=== PATIENT | male | born 1935 | race Caucasian/White ===

== ENCOUNTER 2016-09-25 14:20 | Inpatient (IN) | payer MEDICARE, OTHER ==
[2016-09-25] MEDS ORDERED: ONDANSETRON 4 MG/2 ML VIAL IVP STA (14:28)
[2016-09-25] MEDS ORDERED: SODIUM CHLORIDE 0.9% 1,000 ML IV STA (14:28)
[2016-09-25] MEDS ORDERED: FAMOTIDINE 20 MG/2 ML VIAL IV STA (14:34)
--- NOTE | 2016-09-25 14:34 | ED ---
GI Bleed HPI - General Stated complaint: Nausea,Vomiting Time Seen by Provider: 09/25/16 14:20 Source: patient, EMS, RN notes reviewed, old records reviewed Mode of arrival: EMS - History of Present Illness Initial comments: This is a 81-year-old male with a history of CVA with left hemiparesis who woke up earlier last several weeks is been declining with decrease oral intake not taking medications who was in the process of being fed today when he had what appeared to be coffee-ground emesis. No reports of blood per rectum he had 2 small emesis and route per EMS personnel was were clear with some brown flecks. Patient is nonverbal but can answer yes or no. MD complaint: coffee ground emesis - Related Data Home Medications Medication Instructions Recorded Confirmed Acetaminophen Tab [Tylenol] 650 mg PO Q4H PRN 01/27/14 09/25/16 Cetirizine HCl [Zyrtec] 5 mg PO HS 01/27/14 09/25/16 Fluticasone Propionate [Flonase] 1 spray EA NOSTRIL BID@1100,209901/27/1409/25 Hydrocortisone Cream 1 applic TOPICAL HS 01/28/14 09/25/16 [Hydrocortisone 2.5% Cream] ALPRAZolam [Xanax] 0.25 mg PO HS@2100 09/25/16 09/25/16 Calazime Paste 1 applic TOPICAL BID 09/25/16 09/25/16 Clopidogrel [Plavix] 75 mg PO DAILY@1100 09/25/16 09/25/16 Clotrimazole/Betamethasone Dip 1 applic TOPICAL BID 09/25/16 09/25/16 [Lotrisone Cream] Dimethicone/Zinc Oxide [Inzo Zinc 1 applic TOPICAL DAILY PRN 09/25/16 09/25/16 Oxide Barrier Cream] Dimethicone/Zinc Oxide [Inzo Zinc 1 applic TOPICAL Q12H 09/25/16 09/25/16 Oxide Barrier Cream] Docusate [Colace] 100 mg PO BID PRN 09/25/16 09/25/16 Megestrol Acetate [Megace] 400 mg PO DAILY 09/25/16 09/25/16 Memantine [Namenda] 10 mg PO BID 09/25/16 09/25/16 Menthol-Camphor Lotion [Sarna 1 applic TOPICAL BID PRN 09/25/16 09/25/16 Lotion 0.5%-0.5%] Tamsulosin HCl [Flomax] 0.4 mg PO HS 09/25/16 09/25/16 Tolnaftate [Tinactin Powder] 1 applic TOPICAL Q12H 09/25/16 09/25/16 Triamcinolone 0.1% Cream [Kenalog] 1 applic TOPICAL Q12H 09/25/16 09/25/16 Venelex Ointment 1 applic TOPICAL BID 09/25/16 09/25/16 diphenhydrAMINE HCL [Benadryl] 25 mg PO DAILY PRN 09/25/16 09/25/16 Allergies Allergy/AdvReac Type Severity Reaction Status Date / Time No Known Allergies Allergy Verified 09/25/16 14:39 Review of Systems ROS Statement: Those systems with pertinent positive or pertinent negative responses have been documented in the HPI. ROS Other: All systems not noted in ROS Statement are negative. Past Medical History Past Medical History: CVA/TIA, Hyperlipidemia, Hypertension, Osteoarthritis (OA) Additional Past Medical History / Comment(s): mild congnitive impairment, dysphagia, hemiplegia left, gout, psoriasis. CVA in . right great toe wound. Elevated liver enzymes. Recent C-diff colitis. History of Any Multi-Drug Resistant Organisms: C-DIFF, Other MDRO Date of last positivie culture/infection: 01/21/14 MDRO Source:: stool Additional Past Surgical History / Comment(s): bilateral cataracts removed. Liver biopsy 02/15/14 for elevated liver function. Past Anesthesia/Blood Transfusion Reactions: No Reported Reaction Additional Past Alcohol Use History / Comment(s): Patient was a smoker of 2-3 packs per day for 35 years. Patient also has a history of alcohol abuse and was drinking beer, 12 ounce, 5-8 per day. Patient started drinking when he was in seventh. grade and recently quit in May 2013 when he had a stroke. Patient is currently residing at [facility]. - Past Family History Father Family Medical History: COPD Mother Family Medical History: Cancer General Exam - General Exam Comments Initial Comments: This is a well-developed well-nourished awake lethargic male Limitations: altered mental status, physical limitation Head exam: Present: atraumatic, normocephalic, normal inspection Eye exam: Present: normal appearance, PERRL, EOMI. Absent: scleral icterus, conjunctival injection, periorbital swelling ENT exam: Present: mucous membranes dry Neck exam: Present: normal inspection. Absent: tenderness, meningismus, lymphadenopathy Respiratory exam: Present: decreased breath sounds Cardiovascular Exam: Present: regular rate, normal rhythm, normal heart sounds. Absent: systolic murmur, diastolic murmur, rubs, gallop, clicks GI/Abdominal exam: Present: soft. Absent: tenderness Rectal exam: Present: normal inspection, heme (-) stool, other (Heme-negative brown stool). Absent: mass, tenderness Extremities exam: Present: normal capillary refill, other (Left hemiparesis will bunney boot on the left foot). Absent: normal inspection, full ROM Back exam: Present: normal inspection Neurological exam: Present: alert, oriented X3, motor sensory deficit. Absent: CN II-XII intact Psychiatric exam: Present: normal mood, flat affect Skin exam: Present: warm, dry Course Vital Signs 09/25/16 09/25/16 15:02 16:18 Temperature 97.2 F L 98.1 F Pulse Rate 108 H 97 Respiratory 16 16 Rate Blood Pressure 114/66 113/67 O2 Sat by Pulse 91 L 100 Oximetry Medical Decision Making - Medical Decision Making I did discuss the findings with the patient family and with Dr. Helton the patient will be admitted with ultrasound the abdomen further lab testing consultation by GI. - Lab Data Result diagrams: 09/25/16 14:50 09/25/16 14:50 Lab Results 09/25/16 09/25/16 09/25/16 Range/Units 14:50 14:50 14:50 WBC 10.4 (3.8-10.6) k/uL RBC 5.10 (4.30-5.90) m/uL Hgb 16.6 (13.0-17.5) gm/dL Hct 50.6 (39.0-53.0) % MCV 99.3 (80.0-100.0) fL MCH 32.5 (25.0-35.0) pg MCHC 32.7 (31.0-37.0) g/dL RDW 16.3 H (11.5-15.5) % Plt Count 226 (150-450) k/uL Neutrophils % 82 % Lymphocytes % 11 % Monocytes % 4 % Eosinophils % 1 % Basophils % 0 % Neutrophils # 8.5 H (1.3-7.7) k/uL Lymphocytes # 1.1 (1.0-4.8) k/uL Monocytes # 0.4 (0-1.0) k/uL Eosinophils # 0.1 (0-0.7) k/uL Basophils # 0.0 (0-0.2) k/uL Hypochromasia Slight Anisocytosis Slight Macrocytosis Slight PT (9.0-12.0) sec INR (<1.1) APTT (22.0-30.0) sec Sodium 140 (137-145) mmol/L Potassium 4.3 (3.5-5.1) mmol/L Chloride 103 (98-107) mmol/L Carbon Dioxide 17 L (22-30) mmol/L Anion Gap 20 mmol/L BUN 11 (9-20) mg/dL Creatinine 0.70 (0.66-1.25) mg/dL Est GFR (MDRD) Af Amer >60 (>60 ml/min/1.73 sqM) Est GFR (MDRD) Non-Af >60 (>60 ml/min/1.73 sqM) Glucose 109 H (74-99) mg/dL Calcium 9.3 (8.4-10.2) mg/dL Magnesium 1.9 (1.6-2.3) mg/dL Total Bilirubin 1.6 H (0.2-1.3) mg/dL AST 29 (17-59) U/L ALT 18 L (21-72) U/L Alkaline Phosphatase 191 H (38-126) U/L Total Creatine Kinase 21 L (55-170) U/L CK-MB (CK-2) 0.7 (0.0-2.4) ng/mL CK-MB (CK-2) Rel Index 3.3 Troponin I <0.012 (0.000-0.034) ng/mL Total Protein 6.9 (6.3-8.2) g/dL Albumin 3.7 (3.5-5.0) g/dL Stool Occult Blood (Negative) 09/25/16 09/25/16 Range/Units 14:50 15:38 WBC (3.8-10.6) k/uL RBC (4.30-5.90) m/uL Hgb (13.0-17.5) gm/dL Hct (39.0-53.0) % MCV (80.0-100.0) fL MCH (25.0-35.0) pg MCHC (31.0-37.0) g/dL RDW (11.5-15.5) % Plt Count (150-450) k/uL Neutrophils % % Lymphocytes % % Monocytes % % Eosinophils % % Basophils % % Neutrophils # (1.3-7.7) k/uL Lymphocytes # (1.0-4.8) k/uL Monocytes # (0-1.0) k/uL Eosinophils # (0-0.7) k/uL Basophils # (0-0.2) k/uL Hypochromasia Anisocytosis Macrocytosis PT 14.5 H (9.0-12.0) sec INR 1.5 (<1.1) APTT 22.7 (22.0-30.0) sec Sodium (137-145) mmol/L Potassium (3.5-5.1) mmol/L Chloride (98-107) mmol/L Carbon Dioxide (22-30) mmol/L Anion Gap mmol/L BUN (9-20) mg/dL Creatinine (0.66-1.25) mg/dL Est GFR (MDRD) Af Amer (>60 ml/min/1.73 sqM) Est GFR (MDRD) Non-Af (>60 ml/min/1.73 sqM) Glucose (74-99) mg/dL Calcium (8.4-10.2) mg/dL Magnesium (1.6-2.3) mg/dL Total Bilirubin (0.2-1.3) mg/dL AST (17-59) U/L ALT (21-72) U/L Alkaline Phosphatase (38-126) U/L Total Creatine Kinase (55-170) U/L CK-MB (CK-2) (0.0-2.4) ng/mL CK-MB (CK-2) Rel Index Troponin I (0.000-0.034) ng/mL Total Protein (6.3-8.2) g/dL Albumin (3.5-5.0) g/dL Stool Occult Blood Negative (Negative) - EKG Data -: EKG Interpreted by Me (Sinus tachycardia rate 114 VA 136 QRS duration 74 daily since QTC of 3:30/4) - Radiology Data Radiology results: report reviewed (I did review the imaging and reports no acute findings are significant for suicide.), image reviewed Disposition Clinical Impression: Vomiting, Dehydration, Failure to thrive Disposition: ADMITTED IP TO THIS [facility] Condition: Stable Referrals: Clyde Doran MD [Primary Care Provider] - 1-2 days
[2016-09-25 15:19] LABS: Anisocytosis Slight; Basophils % (A) 0 %; CH 30.7; CHCM 31.1; Eosinophils # (A) 0.1 k/uL (0-0.7); Eosinophils % (A) 1 %; HCT 50.6 % (39.0-53.0); HDW 2.47; HGB 16.6 gm/dL (13.0-17.5); Hypochromasia Slight; Luc # (Auto) 0.17; Luc % (Auto) 2; Lymphocytes # (A) 1.1 k/uL (1.0-4.8); Lymphocytes % (A) 11 %; MCH 32.5 pg (25.0-35.0); MCHC 32.7 g/dL (31.0-37.0); MCV 99.3 fL (80.0-100.0); Macrocytosis Slight; Mean Platelet Volume 7.9; Monocytes # (A) 0.4 k/uL (0-1.0); Monocytes % (A) 4 %; Neutrophils # (A) 8.5 k/uL (1.3-7.7); Neutrophils % (A) 82 %; RDW 16.3 % (11.5-15.5); WBC 10.4 k/uL (3.8-10.6); WBC (Perox) 10.39
[2016-09-25 15:27] LABS: ALT 18 U/L (21-72); AST 29 U/L (17-59); Alkaline Phosphatase 191 U/L (38-126); Anion Gap 20 mmol/L; Blood Urea Nitrogen 11 mg/dL (9-20); Calcium 9.3 mg/dL (8.4-10.2); Carbon Dioxide 17 mmol/L (22-30); Chloride 103 mmol/L (98-107); Glucose 109 mg/dL (74-99); Magnesium 1.9 mg/dL (1.6-2.3); Non-African American GFR(MDRD) >60 (>60 ml/min/1.73 sqM); Potassium 4.3 mmol/L (3.5-5.1); Sodium 140 mmol/L (137-145); Total Bilirubin 1.6 mg/dL (0.2-1.3); Total Protein 6.9 g/dL (6.3-8.2)
[2016-09-25 15:39] LABS: Creatine Kinase 21 U/L (55-170)
[2016-09-25 15:52] LABS: Creatine Kinase MB 0.7 ng/mL (0.0-2.4); Troponin I <0.012 ng/mL (0.000-0.034)
--- NOTE | 2016-09-25 15:59 | XR ---
EXAMINATION TYPE: XR abdomen acute w cxr DATE OF EXAM ORDERED: 09/25/2016 HISTORY: Pain. COMPARISON: None. FINDINGS: There is apparent elevation right hemidiaphragm. The heart is not enlarged. There is minim al atelectasis at the right lung base. Within the abdomen, the abdominal gas pattern is nonspecific with nondistended air-filled loops of la rge and small bowel throughout the abdomen. There are phleboliths within the pelvis. There is a moder ate amount of stool within the rectum. IMPRESSION: NO ACUTE THORACIC OR ABDOMINAL ABNORMALITY.
[2016-09-25 16:04] LABS: INR 1.5 (<1.1); Partial Thromboplastin Time 22.7 sec (22.0-30.0); Prothrombin Time 14.5 sec (9.0-12.0)
[2016-09-25] MEDS ORDERED: NALOXONE 0.4 MG/ML 1 ML VIAL IV PRN (16:41)
[2016-09-25] MEDS ORDERED: ONDANSETRON 4 MG/2 ML VIAL IVP PRN (16:41)
--- NOTE | 2016-09-25 18:28 | US ---
EXAMINATION TYPE: US abdomen complete DATE OF EXAM: 09/25/2016 COMPARISON: Prior US in PACS CLINICAL HISTORY: Pain. Extremely limited/difficult exam due to large amount of overlying bowel gas. Patient was non-cooperative. Could not take a deep breath in and hold it and would not roll onto his side. RN Adrienne in exam room for entire exam EXAM MEASUREMENTS: Liver Length: Unable to measure with certainty Gallbladder Wall: 0.2 cm CBD: Unable to visualize with certainty Spleen:Unable to visualize with certainty Right Kidney: 9.7 x 5.6 x 5.0 cm Left Kidney: 9.6 x 5.9 x 5.1 cm Pancreas: Unable to visualize with certainty Liver: Extremely limited exam due to large amount of overlying bowel gas and patient non-cooperation Gallbladder: No stones visualized on limited evaluation Evidence for sonographic Hernández's sign: Patient in pain during entire exam CBD: Unable to visualize with certainty Spleen: Unable to visualize with certainty Right Kidney: No hydronephrosis or masses seen Left Kidney: No hydronephrosis or masses seen Upper IVC: Unable to visualize with certainty Abd Aorta: Unable to visualize with certainty Non-diagnostic exam IMPRESSION: Limited study. No distinct abnormality seen at this time.
[2016-09-25 18:48] LABS: Amylase 46 U/L (30-110)
[2016-09-25] MEDS: PANTOPRAZOLE 40 MG/10 ML VIAL IV SCH (20:25)
[2016-09-26] MEDS: 0.9% NACL WITH KCL 20 MEQ/L 1,000 ML IV SCH ×4 (00:20→21:26)
[2016-09-26 05:36] LABS: Appearance,Urine Clear (Clear); Bacteria,Urine Rare /hpf; Bilirubin,Urine 1+ (Negative); Glucose,Urine (UA) Negative (Negative); Ketones,Urine 2+ (Negative); Leukocyte Esterase,Urine Trace (Negative); Mucus,Urine Rare /hpf; Nitrite,Urine Negative (Negative); Particle Count 3056; Protein,Urine 1+ (Negative); RBC,Urine 1 /hpf (0-5); Specific Gravity,Urine 1.027 (1.001-1.035); Squamous Epithelial Cell,Urine 1 /hpf (0-4); UA Billing (MACRO vs. MICRO) MICRO; WBC,Urine 5 /hpf (0-5)
[2016-09-26 07:48] LABS: Anisocytosis Slight; Basophils % (A) 0 %; CHCM 31.6; Eosinophils # (A) 0.2 k/uL (0-0.7); Eosinophils % (A) 2 %; HCT 46.9 % (39.0-53.0); HDW 2.45; HGB 14.9 gm/dL (13.0-17.5); Luc # (Auto) 0.24; Luc % (Auto) 2; Lymphocytes # (A) 0.9 k/uL (1.0-4.8); Lymphocytes % (A) 8 %; MCH 31.5 pg (25.0-35.0); MCHC 31.8 g/dL (31.0-37.0); Macrocytosis Slight; Mean Platelet Volume 8.3; Monocytes # (A) 0.6 k/uL (0-1.0); Monocytes % (A) 5 %; Neutrophils # (A) 9.8 k/uL (1.3-7.7); Neutrophils % (A) 83 %; RBC 4.74 m/uL (4.30-5.90); RDW 16.2 % (11.5-15.5); WBC 11.8 k/uL (3.8-10.6)
[2016-09-26 08:08] LABS: Anion Gap 13 mmol/L; Blood Urea Nitrogen 9 mg/dL (9-20); Carbon Dioxide 18 mmol/L (22-30); Chloride 112 mmol/L (98-107); Glucose 87 mg/dL (74-99); Potassium 4.1 mmol/L (3.5-5.1); Sodium 143 mmol/L (137-145)
[2016-09-26 08:09] LABS: ALT 18 U/L (21-72); AST 20 U/L (17-59); Alkaline Phosphatase 151 U/L (38-126); Calcium 8.5 mg/dL (8.4-10.2); Non-African American GFR(MDRD) >60 (>60 ml/min/1.73 sqM); Total Bilirubin 1.4 mg/dL (0.2-1.3); Total Protein 5.8 g/dL (6.3-8.2)
[2016-09-26] MEDS: PANTOPRAZOLE 40 MG/10 ML VIAL IV SCH ×2 (08:13→21:27)
[2016-09-26 08:30] VITALS: BMI 18.3
--- NOTE | 2016-09-26 08:41 | P.CONS ---
History of Present Illness - Reason for Consult Consult date: 09/26/16 Vomiting elevated bilirubin Requesting physician: Sarah Helton - History of Present Illness 81-year-old male essentially nonverbal can answer yes or no with a history of CVA left hemiparesis, C. diff, dysphagia, anxiety, depression, and elevated liver function tests admitted with decreased oral intake and reported coffee- ground emesis. Consultation requested for elevated bilirubin and vomiting Medical records reviewed nursing staff interviewed for additional history secondary to patient's inability to provide details. No reports of fever, gross hematochezia or melena since admission. Home medications include Plavix. Admission hemoglobin 16.6. Platelet 226. INR 1.5. BUN 11. Creatinine 0.7. Total bilirubin 1.6. AST 29. ALT 18. Alkaline phosphatase 191. Ultrasound incomplete secondary to patient being noncooperative. Acute abdominal series no abdominal abnormality identified. Patient has a history of elevated liver function tests that dates back to 2013. Full serologic workup for chronic liver disease has been performed in the past. Upon review of medical records over the last few years total bilirubin ranges 0.4-1.6. AST 29-187. ALT 18-to 85. Alkaline phosphatase 191-1105. INR 1.0-1.5. JAKE less than 80. Anti-mitochondrial antibody 2. GGT 794. Iron 80. Iron saturation 37.9%. Ferritin 1640. MRCP 2013 reported no evidence of obstruction or focal stenosis. Exam limited secondary to patient's inability to hold breath for the exam. Liver spleen pancreas gallbladder appeared grossly normal. No intra-hepatic ductal dilatation evident. Review of Systems Medical records reviewed for ROS. Constitutional: Denies fever, chills, sweats, weight gain, or loss. Nonverbal except yes or no responses. HEENT: Negative for migraines, blurred vision or loss, earaches, drainage, tinnitus, oral mucosal lesions, dysphagia, or odynophagia. Cardiac: Hyperlipidemia. Hypertension. Negative for chest pain, arrhythmias, or palpitation. Respiratory: Negative for shortness of breath, hemoptysis, cough, or sputum production. Gastrointestinal: See HPI for pertinent findings. Genitourinary: Negative for hematuria, urgency, frequency, polyuria, dysuria, or penile discharge. Musculoskeletal: Negative for muscle aches, swelling, arthritis, and arthralgias. Neurologic: CVA with left hemiparesis. Endocrine: Negative for thyroid problems. Skin: Negative for rash or itching. Psychiatric: History of depression and anxiety ROS unobtainable: due to mental status Past Medical History Past Medical History: CVA/TIA, Hyperlipidemia, Hypertension, Osteoarthritis (OA) Additional Past Medical History / Comment(s): mild congnitive impairment, dysphagia, hemiplegia left, gout, psoriasis. CVA in . right great toe wound. Elevated liver enzymes. Recent C-diff colitis. History of Any Multi-Drug Resistant Organisms: C-DIFF, Other MDRO Year Discovered:: 01/21/14 MDRO Source:: stool Additional Past Surgical History / Comment(s): bilateral cataracts removed. Liver biopsy 02/15/14 for elevated liver function. Past Anesthesia/Blood Transfusion Reactions: No Reported Reaction Past Psychological History: Anxiety, Depression Smoking Status: Former smoker - Past Family History Father Family Medical History: COPD Mother Family Medical History: Cancer Medications and Allergies Home Medications Medication Instructions Recorded Confirmed Type Acetaminophen Tab [Tylenol] 650 mg PO Q4H PRN 01/27/14 09/25/16 History Cetirizine HCl [Zyrtec] 5 mg PO HS 01/27/14 09/25/16 History Fluticasone Propionate [Flonase] 1 spray EA NOSTRIL BID@1100,2100 01/27/1409/25 History Hydrocortisone Cream 1 applic TOPICAL HS 01/28/14 09/25/16 History [Hydrocortisone 2.5% Cream] ALPRAZolam [Xanax] 0.25 mg PO HS@2100 09/25/16 09/25/16 History Calazime Paste 1 applic TOPICAL BID 09/25/16 09/25/16 History Clopidogrel [Plavix] 75 mg PO DAILY@1100 09/25/16 09/25/16 History Clotrimazole/Betamethasone Dip 1 applic TOPICAL BID 09/25/16 09/25/16 History [Lotrisone Cream] Dimethicone/Zinc Oxide [Inzo Zinc 1 applic TOPICAL DAILY PRN 09/25/16 09/25/16 History Oxide Barrier Cream] Dimethicone/Zinc Oxide [Inzo Zinc 1 applic TOPICAL Q12H 09/25/16 09/25/16 History Oxide Barrier Cream] Docusate [Colace] 100 mg PO BID PRN 09/25/16 09/25/16 History Megestrol Acetate [Megace] 400 mg PO DAILY 09/25/16 09/25/16 History Memantine [Namenda] 10 mg PO BID 09/25/16 09/25/16 History Menthol-Camphor Lotion [Sarna 1 applic TOPICAL BID PRN 09/25/16 09/25/16 History Lotion 0.5%-0.5%] Tamsulosin HCl [Flomax] 0.4 mg PO HS 09/25/16 09/25/16 History Tolnaftate [Tinactin Powder] 1 applic TOPICAL Q12H 09/25/16 09/25/16 History Triamcinolone 0.1% Cream [Kenalog] 1 applic TOPICAL Q12H 09/25/16 09/25/16 History Venelex Ointment 1 applic TOPICAL BID 09/25/16 09/25/16 History diphenhydrAMINE HCL [Benadryl] 25 mg PO DAILY PRN 09/25/16 09/25/16 History Allergies Allergy/AdvReac Type Severity Reaction Status Date / Time No Known Allergies Allergy Verified 09/25/16 14:39 Physical Exam Vitals: Vital Signs Temp Pulse Pulse Resp BP BP BP 09/26/16 07:00 97.5 F L 86 16 121/82 09/25/16 23:00 97.0 F L 91 20 108/68 09/25/16 19:34 98.3 F 97 20 97/63 09/25/16 18:26 97.6 F 112 H 16 116/64 09/25/16 16:18 98.1 F 97 16 113/67 09/25/16 15:02 97.2 F L 108 H 16 114/66 Pulse Ox 09/26/16 07:00 96 09/25/16 23:00 94 L 09/25/16 19:34 95 09/25/16 18:26 94 L 09/25/16 16:18 100 09/25/16 15:02 91 L Intake and Output 09/25/16 09/26/16 09/26/16 22:59 06:59 14:59 Intake Total 0 1150 Output Total 1101 Balance 0 49 Intake: IV 1150 0.9% NaCl with KCl 20 Meq 650 /l 1,000 ml @ 125 mls/hr IV .Q8H [facility] Rx#:[id number] Sodium Chloride 0.9% 1, 500 000 ml @ 100 mls/hr IV . Q10H [facility] Rx#:[id number] Oral 0 Output: Urine 1100 Straight 550 Stool 1 Other: # Voids 0 0 # Bowel Movements 1 Weight 54.885 kg General appearance: The patient is alert, oriented, in no acute distress. Answers yes or no. HET: Head is normocephalic and atraumatic. Pupils are equal and reactive. Oropharynx is clear without lesions. Neck: Supple without lymphadenopathy. Trachea midline. Heart: S1 S2. Regular rate and rhythm. Lungs: No crackles or wheezes are heard. Abdomen: Soft, nontender, nondistended with bowel sounds. No peritoneal signs. No palpable organomegaly or masses. Extremities: Normal skin color and turgor. No cyanosis, rash, ulceration, clubbing, or edema. Radial and pedal pulses are 2/4 bilaterally. Neurological: Left hemiparesis. Results CBC & Chem 7: 09/26/16 07:09 09/26/16 07:09 Labs: Abnormal Lab Results - Last 24 Hours (Table) 09/25/16 09/25/16 09/25/16 Range/Units 14:50 14:50 14:50 RDW 16.3 H (11.5-15.5) % Neutrophils # 8.5 H (1.3-7.7) k/uL PT (9.0-12.0) sec Carbon Dioxide 17 L (22-30) mmol/L Glucose 109 H (74-99) mg/dL Total Bilirubin 1.6 H (0.2-1.3) mg/dL ALT 18 L (21-72) U/L Alkaline Phosphatase 191 H (38-126) U/L Total Creatine Kinase 21 L (55-170) U/L Urine Protein (Negative) Urine Ketones (Negative) Urine Bilirubin (Negative) Ur Leukocyte Esterase (Negative) Urine Bacteria (None) /hpf Hyaline Casts (0-2) /lpf Urine Mucus (None) /hpf 09/25/16 09/26/16 Range/Units 14:50 05:10 RDW (11.5-15.5) % Neutrophils # (1.3-7.7) k/uL PT 14.5 H (9.0-12.0) sec Carbon Dioxide (22-30) mmol/L Glucose (74-99) mg/dL Total Bilirubin (0.2-1.3) mg/dL ALT (21-72) U/L Alkaline Phosphatase (38-126) U/L Total Creatine Kinase (55-170) U/L Urine Protein 1+ H (Negative) Urine Ketones 2+ H (Negative) Urine Bilirubin 1+ H (Negative) Ur Leukocyte Esterase Trace H (Negative) Urine Bacteria Rare H (None) /hpf Hyaline Casts 3 H (0-2) /lpf Urine Mucus Rare H (None) /hpf Assessment and Plan (1) Elevated liver enzymes Narrative/Plan: 81-year-old gentleman with a history of elevated liver function tests possible underlying chronic liver disease presents with mild hyperbilirubinemia and reported episode of coffee-ground emesis and mild coagulopathy INR 1.5. Acute coffee-ground emesis secondary to possible peptic ulcer disease possible esophageal varices possible bleeding angiectasia exacerbated by antiplatelet medication. Patient has a history of stroke with left hemiparesis requiring Plavix therapy. Status: Chronic (2) Coffee ground emesis Status: Acute (3) Upper GI bleed Status: Acute (4) CVA, old, hemiparesis Status: Chronic Plan: 1. Recommend EGD evaluation for reported coffee ground emesis. 2. Protonix 40 mg IV daily. 3. CBC monitoring. 4. Bilirubin fractions. The trouble lineman has discussed the risks, benefits and alternative therapies for the above-mentioned procedure and for both sedation/analgesia as well as necessary blood product administration, if indicated, as they pertain to this patient. The patient's advocate has indicated understanding and acceptance of the risks and procedures discussed. Thank you for this kind referral and the opportunity to participate in the care of your patient. This consultation was discussed with Dr. Crowe. The impression and plan of care have been directed as dictated.
[2016-09-26 11:38] LABS: Bilirubin, Delta 0.9 mg/dL (0.0-0.2); Total Bilirubin 1.4 mg/dL (0.2-1.3)
[2016-09-26] MEDS ORDERED: PROPOFOL 10 MG/ML 20 ML VIAL IV ONE (13:08)
[2016-09-26] MEDS ORDERED: LIDOCAINE 1% INJ 10MG/ML (20 ML MDV) ONE (13:08)
[2016-09-26] MEDS ORDERED: IV FLUID CONTINUATION 1,000 ML IV ONE (13:12)
--- NOTE | 2016-09-26 13:23 | P.PCN ---
Date of Procedure: 09/26/16 Preoperative Diagnosis: Postoperative Diagnosis: Procedure(s) Performed: BRIEF HISTORY: Patient is a 81-year-old, pleasant, white male, admitted hospital with an episode of acute upper GI bleed. Apparently he had an episode of coffee-ground emesis. He has history of previous CVA in the past/dementia and a very poor historian. PROCEDURE PERFORMED: Esophagogastroduodenoscopy. PREOPERATIVE DIAGNOSIS: Coffee-ground emesis. IV sedation per anesthesia. PROCEDURE: After informed consent was obtained, the patient was brought into the endoscopy unit. IV sedation was administered by Anesthesia under continuous monitoring. Initially the Olympus GIF-140 video endoscope was inserted into the mouth. Esophagus intubated without any difficulty. It was gradually advanced into the stomach and duodenum and carefully examined. The bulb and the second part of the duodenum appeared normal. The scope at this time was withdrawn to the stomach, adequately insufflated with air, and upon careful examination, mucosa of the antrum had mild gastritis. The body, cardia and the fundus appeared normal. The scope was then withdrawn into the esophagus. The GE junction was located at 39 cm from the incisors. The esophagus appeared normal. There was circumferential erythema the GE junction consistent with LA grade a reflux esophagitis but no erosions or ulcerations seen and the patient tolerated the procedure well. IMPRESSION: 1. Mild antral gastritis. 2. Mild reflux esophagitis. RECOMMENDATIONS: The findings of this examination were discussed with the patient as well as his family. He will be continued on proton pump inhibitors and will advance diet as tolerated. Implants: Indications for Procedure: Operative Findings: Description of Procedure:
--- NOTE | 2016-09-26 17:24 | P.HPIM ---
History of Present Illness H&P Date: 09/26/16 Chief Complaint: Vomiting with possible upper GI bleeding Sudeep Cabrera is a 81 year old male resident of a [place] [facility] who started having episodes of vomiting, nurse [place] the [place] [facility] thought that she saw a coffee ground material vomiting, he was sent to [facility] emergency room for evaluation, he was evaluated in the emergency room and admitted to medical floor due to episodes of vomiting. He was started on IV proton next gastroenterology consultation was requested Past Medical History Past Medical History: CVA/TIA, Hyperlipidemia, Hypertension, Osteoarthritis (OA) Additional Past Medical History / Comment(s): mild congnitive impairment, dysphagia, hemiplegia left, gout, psoriasis. CVA in . right great toe wound. Elevated liver enzymes. Recent C-diff colitis. History of Any Multi-Drug Resistant Organisms: C-DIFF, Other MDRO Date of last positivie culture/infection: 01/21/14 MDRO Source:: stool Additional Past Surgical History / Comment(s): bilateral cataracts removed. Liver biopsy 02/15/14 for elevated liver function. Past Anesthesia/Blood Transfusion Reactions: No Reported Reaction Past Psychological History: Anxiety, Depression Smoking Status: Former smoker - Past Family History Father Family Medical History: COPD Mother Family Medical History: Cancer Medications and Allergies Home Medications Medication Instructions Recorded Confirmed Type Acetaminophen Tab [Tylenol] 650 mg PO Q4H PRN 01/27/14 09/25/16 History Cetirizine HCl [Zyrtec] 5 mg PO HS 01/27/14 09/25/16 History Fluticasone Propionate [Flonase] 1 spray EA NOSTRIL BID@1100,209901/27/1409/25 History Hydrocortisone Cream 1 applic TOPICAL HS 01/28/14 09/25/16 History [Hydrocortisone 2.5% Cream] ALPRAZolam [Xanax] 0.25 mg PO HS@2100 09/25/16 09/25/16 History Calazime Paste 1 applic TOPICAL BID 09/25/16 09/25/16 History Clopidogrel [Plavix] 75 mg PO DAILY@1100 09/25/16 09/25/16 History Clotrimazole/Betamethasone Dip 1 applic TOPICAL BID 09/25/16 09/25/16 History [Lotrisone Cream] Dimethicone/Zinc Oxide [Inzo Zinc 1 applic TOPICAL DAILY PRN 09/25/16 09/25/16 History Oxide Barrier Cream] Dimethicone/Zinc Oxide [Inzo Zinc 1 applic TOPICAL Q12H 09/25/16 09/25/16 History Oxide Barrier Cream] Docusate [Colace] 100 mg PO BID PRN 09/25/16 09/25/16 History Megestrol Acetate [Megace] 400 mg PO DAILY 09/25/16 09/25/16 History Memantine [Namenda] 10 mg PO BID 09/25/16 09/25/16 History Menthol-Camphor Lotion [Sarna 1 applic TOPICAL BID PRN 09/25/16 09/25/16 History Lotion 0.5%-0.5%] Tamsulosin HCl [Flomax] 0.4 mg PO HS 09/25/16 09/25/16 History Tolnaftate [Tinactin Powder] 1 applic TOPICAL Q12H 09/25/16 09/25/16 History Triamcinolone 0.1% Cream [Kenalog] 1 applic TOPICAL Q12H 09/25/16 09/25/16 History Venelex Ointment 1 applic TOPICAL BID 09/25/16 09/25/16 History diphenhydrAMINE HCL [Benadryl] 25 mg PO DAILY PRN 09/25/16 09/25/16 History Allergies Allergy/AdvReac Type Severity Reaction Status Date / Time No Known Allergies Allergy Verified 09/25/16 14:39 Physical Exam Vitals: Vital Signs Temp Pulse Pulse Resp BP BP BP 09/26/16 16:32 90 16 09/26/16 15:00 96.4 F L 90 16 108/67 09/26/16 08:23 97.5 F L 86 16 121/82 09/26/16 07:00 97.5 F L 86 16 121/82 09/25/16 23:00 97.0 F L 91 20 108/68 09/25/16 19:34 98.3 F 97 20 97/63 09/25/16 18:26 97.6 F 112 H 16 116/64 Pulse Ox 09/26/16 16:32 09/26/16 15:00 96 09/26/16 08:23 96 09/26/16 07:00 96 09/25/16 23:00 94 L 09/25/16 19:34 95 09/25/16 18:26 94 L Intake and Output 09/26/16 09/26/16 09/26/16 06:59 14:59 22:59 Intake Total 1150 1000 Output Total 1101 1 Balance 49 1000 -1 Intake: IV 1150 1000 0.9% NaCl with KCl 20 Meq 650 1000 /l 1,000 ml @ 125 mls/hr IV .Q8H [facility] Rx#:[id number] Sodium Chloride 0.9% 1, 500 000 ml @ 100 mls/hr IV . Q10H STA Rx#:[id number] Output: Urine 1100 Straight 550 Stool 1 1 Other: # Voids 0 0 # Bowel Movements 1 1 Weight 54.885 kg Patient Weight 09/27/16 06:59 Weight 54.885 kg In general patient is alert and oriented 3 in no apparent distress HEENT head normocephalic and atraumatic Neck is supple no JVD no goiter no lymphadenopathy Chest exam reveals a few scattered crackles in both lung paredes no wheezing Cardiac exam reveals regular heart sounds S1 and S2 no gallops no murmurs Abdomen is soft nontender no organomegaly Extremity exam reveals minimal edema no cyanosis or clubbing Results CBC & Chem 7: 09/26/16 07:09 09/26/16 07:09 Labs: Abnormal Lab Results - Last 24 Hours (Table) 09/26/16 09/26/16 09/26/16 Range/Units 05:10 07:09 07:09 WBC 11.8 H (3.8-10.6) k/uL RDW 16.2 H (11.5-15.5) % Neutrophils # 9.8 H (1.3-7.7) k/uL Lymphocytes # 0.9 L (1.0-4.8) k/uL Chloride 112 H (98-107) mmol/L Carbon Dioxide 18 L (22-30) mmol/L Creatinine 0.55 L (0.66-1.25) mg/dL Total Bilirubin 1.4 H (0.2-1.3) mg/dL Delta Bilirubin (0.0-0.2) mg/dL ALT 18 L (21-72) U/L Alkaline Phosphatase 151 H (38-126) U/L Total Protein 5.8 L (6.3-8.2) g/dL Albumin 2.9 L (3.5-5.0) g/dL Urine Protein 1+ H (Negative) Urine Ketones 2+ H (Negative) Urine Bilirubin 1+ H (Negative) Ur Leukocyte Esterase Trace H (Negative) Urine Bacteria Rare H (None) /hpf Hyaline Casts 3 H (0-2) /lpf Urine Mucus Rare H (None) /hpf 09/26/16 Range/Units 07:09 WBC (3.8-10.6) k/uL RDW (11.5-15.5) % Neutrophils # (1.3-7.7) k/uL Lymphocytes # (1.0-4.8) k/uL Chloride (98-107) mmol/L Carbon Dioxide (22-30) mmol/L Creatinine (0.66-1.25) mg/dL Total Bilirubin 1.4 H (0.2-1.3) mg/dL Delta Bilirubin 0.9 H (0.0-0.2) mg/dL ALT (21-72) U/L Alkaline Phosphatase (38-126) U/L Total Protein (6.3-8.2) g/dL Albumin (3.5-5.0) g/dL Urine Protein (Negative) Urine Ketones (Negative) Urine Bilirubin (Negative) Ur Leukocyte Esterase (Negative) Urine Bacteria (None) /hpf Hyaline Casts (0-2) /lpf Urine Mucus (None) /hpf Microbiology - Last 24 Hours (Table) 09/26/16 05:10 Urine Culture - Preliminary Urine,Catheterized Thrombosis Risk Factor Assmnt - Choose All That Apply Any of the Below Risk Factors Present?: Yes Each Factor Represents 1 point: Medical pt on bed rest Other Risk Factors: Yes Each Risk Factor Represents 2 Points: Patient confined to bed Each Risk Factor Represents 3 Points: Age 75 years or older Other congenital or acquired thrombophilia - If yes, enter type in comment: No Thrombosis Risk Factor Assessment Total Risk Factor Score: 6 Thrombosis Risk Factor Assessment Level: High Risk Assessment and Plan Plan: #1 gastroenteritis with vomiting #2 possible upper gastrointestinal bleeding with [place] material at the [place] [facility] #3 underlying history of stroke in 2014 #4 previous history of Clostridium difficile colitis #5 elevated liver enzymes and elevated bilirubin #6 underlying history of BPH #7 underlying history of mild cognitive impairment At this time patient is admitted to medical floor he is maintained on IV fluids and IV Protonix Gastroenterology consultation for possible EGD was initiated will follow
[2016-09-26] MEDS ORDERED: MENTHOL-CAMPHOR LOTION 222 APPLIC/222 ML BOTTLE TOPICAL PRN (17:43)
[2016-09-26] MEDS ORDERED: ZINC OXIDE 20% OINT 28.4 GM TUBE TOPICAL PRN (17:43)
[2016-09-26] MEDS ORDERED: ACETAMINOPHEN TAB 325 MG TAB PO PRN (17:43)
[2016-09-26] MEDS ORDERED: diphenhydrAMINE 25 MG CAP PO PRN (17:43)
[2016-09-26] MEDS ORDERED: DOCUSATE 100 MG CAP PO PRN (17:43)
[2016-09-26] MEDS ORDERED: CALAZIME PASTE TOPICAL SCH (21:00)
[2016-09-26] MEDS ORDERED: TAMSULOSIN 0.4 MG CAP.ER.24H PO SCH (21:00)
[2016-09-26] MEDS ORDERED: ALPRAZolam 0.25 MG TAB PO SCH (21:00)
[2016-09-26] MEDS ORDERED: LORATADINE 10 MG TAB PO SCH (21:00)
[2016-09-26] MEDS ORDERED: HYDROCORTISONE TOPICAL SCH (21:00)
[2016-09-26] MEDS: FLUTICASONE 50MCG/SPRAY NASAL 16GM EA NOSTRIL SCH (21:25)
[2016-09-26] MEDS: MINERAL OIL-WHITE PETROLATUM 120 GM JAR TOPICAL SCH (21:26)
[2016-09-26] MEDS: NYSTATIN 100,000 UNIT/GM POWD 15 GM TOPICAL SCH (21:26)
[2016-09-26] MEDS: ZINC OXIDE 20% OINT 28.4 GM TUBE TOPICAL SCH (21:26)
[2016-09-26] MEDS: MEMANTINE 10 MG TAB PO SCH (21:27)
[2016-09-26] MEDS: CLOTRIMAZOLE/BETAMETH 1-0.05% CREAM 45 GM TUBE TOPICAL SCH (21:28)
[2016-09-26] MEDS: TRIAMCINOLONE 0.1% CREAM 80 GM TUBE TOPICAL SCH (21:28)
[2016-09-27] MEDS ORDERED: MEGESTROL 400 MG/10 ML CUP PO SCH (09:00)
[2016-09-27] MEDS: 0.9% NACL WITH KCL 20 MEQ/L 1,000 ML IV SCH ×2 (09:55→16:28)
[2016-09-27] MEDS: MINERAL OIL-WHITE PETROLATUM 120 GM JAR TOPICAL SCH (09:56)
[2016-09-27] MEDS: CLOTRIMAZOLE/BETAMETH 1-0.05% CREAM 45 GM TUBE TOPICAL SCH (09:56)
[2016-09-27] MEDS: MEMANTINE 10 MG TAB PO SCH (09:56)
[2016-09-27] MEDS: PANTOPRAZOLE 40 MG/10 ML VIAL IV SCH (09:57)
[2016-09-27] MEDS: TRIAMCINOLONE 0.1% CREAM 80 GM TUBE TOPICAL SCH (09:57)
[2016-09-27] MEDS: ZINC OXIDE 20% OINT 28.4 GM TUBE TOPICAL SCH (09:57)
[2016-09-27] MEDS: NYSTATIN 100,000 UNIT/GM POWD 15 GM TOPICAL SCH (09:57)
[2016-09-27] MEDS: FLUTICASONE 50MCG/SPRAY NASAL 16GM EA NOSTRIL SCH (09:58)
[2016-09-27] MEDS ORDERED: CLOPIDOGREL 75 MG TAB PO SCH (11:00)
--- NOTE | 2016-09-27 11:12 | P.PN ---
Subjective Principal diagnosis: Elevated bilirubin coffee-ground emesis Status post EGD yesterday for evaluation of reported coffee-ground emesis findings of gastritis no evidence of complicated peptic reflux or varices. History of elevated liver enzymes in the past. No recurrence of coffee-ground emesis. Tolerating diet. Total bilirubin 1.4. Unconjugated 0.5. Conjugated 0. Objective - Vital Signs Vital signs: Vital Signs Temp 97.9 F 09/27/16 07:00 Pulse 72 09/27/16 07:00 Resp 16 09/27/16 07:00 BP 110/60 09/27/16 07:00 Pulse Ox 99 09/27/16 07:00 Intake & Output 09/26/16 09/27/16 09/27/16 18:59 06:59 18:59 Intake Total 1000 60 Output Total 21 346 Balance 979 60 -346 Weight 54.885 kg Intake: IV 1000 0.9% NaCl with KCl 20 Meq 1000 /l 1,000 ml @ 125 mls/hr IV .Q8H [facility] Rx#:[id number] Oral 60 Output: Post Void Residual 20 346 Stool 1 Other: Voiding Method Incontinent # Voids 0 0 3 # Bowel Movements 1 2 - Exam General appearance: The patient is alert, oriented, in no acute distress. Answers yes or no. HET: Head is normocephalic and atraumatic. Pupils are equal and reactive. Oropharynx is clear without lesions. Neck: Supple without lymphadenopathy. Trachea midline. Heart: S1 S2. Regular rate and rhythm. Lungs: No crackles or wheezes are heard. Abdomen: Soft, nontender, nondistended with bowel sounds. No peritoneal signs. No palpable organomegaly or masses. Extremities: Normal skin color and turgor. No cyanosis, rash, ulceration, clubbing, or edema. Radial and pedal pulses are 2/4 bilaterally. Neurological: Left hemiparesis - Labs CBC & Chem 7: 09/26/16 07:09 09/26/16 07:09 Labs: Abnormal Lab Results - Last 24 Hours (Table) 09/26/16 Range/Units 07:09 Total Bilirubin 1.4 H (0.2-1.3) mg/dL Delta Bilirubin 0.9 H (0.0-0.2) mg/dL Microbiology - Last 24 Hours (Table) 09/26/16 05:10 Urine Culture - Preliminary Urine,Catheterized Assessment and Plan (1) Elevated liver enzymes Narrative/Plan: 81-year-old gentleman with a history of elevated liver function tests possible underlying chronic liver disease presents with mild hyperbilirubinemia and reported episode of coffee-ground emesis and mild coagulopathy INR 1.5. Acute coffee-ground emesis unclear status post EGD with findings of gastritis no evidence of esophageal varices or complicated reflux disease. Patient has a history of stroke with left hemiparesis requiring Plavix therapy. Status: Chronic (2) Coffee ground emesis Narrative/Plan: Status post EGD gastritis Status: Acute (3) Upper GI bleed Status: Acute (4) CVA, old, hemiparesis Status: Chronic Plan: 1. Agreeable for discharge. Continue GI prophylaxis with [facility]. No further workup at this time. Assessment and plan a care discussed with Dr. Crowe.
--- NOTE | 2016-09-27 14:16 | P.DS ---
Providers Date of admission: 09/25/16 16:41 Expected date of discharge: 09/27/16 Attending physician: Sarah Helton Consults: Dr. Fran Crowe Primary care physician: Clyde Doran [facility] Hospital Course: Discharge diagnosis 1. Acute GI bleed with coffee ground emesis status post EGD revealing mild antral gastritis and mild reflux esophagitis. Hemoglobin stable at 14.9. Continue Protonix 40 mg by mouth daily 2. Elevated liver enzymes with possible underlying chronic liver disease. Evaluated by GI service EGD had showed no evidence of esophageal varices or complicated reflux disease. 3. History of CVA patient can continue Plavix 4. History of BPH 5. History of dementia 6. Urinary retention: Patient required Garcia catheter to be inserted. Flomax was increased to twice a day. Recommend continuing Garcia catheter for one week and then to check postvoid residuals every 8 hours for 24 hour. 7. UTI: Will discharge patient on amoxicillin 500 mg 3 times a day for 7 days. Urine culture had grown only 10,000 colonies of presumptive staph aureus Hospital course Sudeep Cabrera is a 81 [facility] who started having episodes of vomiting, nurse [facility] the [facility] thought that she saw a coffee ground material vomiting, he was sent to [facility] emergency room for evaluation, he was evaluated in the emergency room and admitted to medical floor due to episodes of vomiting. He was started on IV proton next gastroenterology consultation was requested. Patient seen by GI service. Underwent EGD revealing mild antral gastritis and mild reflux esophagitis. We will continue Protonix 40 mg daily. Hemoglobin at discharge is 14.9. Recommend checking a CBC in 1 week. He's had no further episodes of vomiting. Patient did have a mild UTI and was given 1 dose of Rocephin will continue amoxicillin for 7 more days. GI service also felt that patient's elevated liver enzymes which are showing improvement were is related to her chronic liver disease. Patient has had some workup completed outpatient per GI service. Patient's symptoms have improved she is medically stable for discharge also he had evidence of urinary retention Flomax as been increased and he'll be discharged with the Garcia catheter for one week. Recommend checking CBC and CMP in 1 week. Please refer to chart for any further details. Patient will be discharged to [facility]. Dr. Doran will follow at [facility] Patient Condition at Discharge: Stable Plan - Discharge Summary New Discharge Prescriptions: New Pantoprazole Sodium [Protonix] 40 mg PO DAILY #30 tablet.dr Continue Acetaminophen Tab [Tylenol] 650 mg PO Q4H PRN PRN Reason: Pain Or Fever > 100.5 Fluticasone Propionate [Flonase] 1 spray EA NOSTRIL BID@1100,2100 Cetirizine HCl [Zyrtec] 5 mg PO HS Hydrocortisone Cream [Hydrocortisone 2.5% Cream] 1 applic TOPICAL HS Triamcinolone 0.1% Cream [Kenalog] 1 applic TOPICAL Q12H Clotrimazole/Betamethasone Dip [Lotrisone Cream] 1 applic TOPICAL BID Dimethicone/Zinc Oxide [Inzo Zinc Oxide Barrier Cream] 1 applic TOPICAL Q12H Tolnaftate [Tinactin Powder] 1 applic TOPICAL Q12H diphenhydrAMINE HCL [Benadryl] 25 mg PO DAILY PRN PRN Reason: Itching Docusate [Colace] 100 mg PO BID PRN PRN Reason: Constipation Memantine [Namenda] 10 mg PO BID Megestrol Acetate [Megace] 400 mg PO DAILY Clopidogrel [Plavix] 75 mg PO DAILY@1100 Calazime Paste 1 applic TOPICAL BID Venelex Ointment 1 applic TOPICAL BID Menthol-Camphor Lotion [Sarna Lotion 0.5%-0.5%] 1 applic TOPICAL BID PRN PRN Reason: Itching Dimethicone/Zinc Oxide [Inzo Zinc Oxide Barrier Cream] 1 applic TOPICAL DAILY PRN PRN Reason: Itching ALPRAZolam [Xanax] 0.25 mg PO HS@2100 #30 Changed Tamsulosin HCl [Flomax] 0.4 mg PO BID #60 Discharge Medication List Acetaminophen Tab [Tylenol] 650 mg PO Q4H PRN 01/27/14 [History] Cetirizine HCl [Zyrtec] 5 mg PO HS 01/27/14 [History] Fluticasone Propionate [Flonase] 1 spray EA NOSTRIL BID@1100,2100 01/27/14 [ History] Hydrocortisone Cream [Hydrocortisone 2.5% Cream] 1 applic TOPICAL HS 01/28/14 [ History] Calazime Paste 1 applic TOPICAL BID 09/25/16 [History] Clopidogrel [Plavix] 75 mg PO DAILY@1100 09/25/16 [History] Clotrimazole/Betamethasone Dip [Lotrisone Cream] 1 applic TOPICAL BID 09/25/16 [ History] Dimethicone/Zinc Oxide [Inzo Zinc Oxide Barrier Cream] 1 applic TOPICAL DAILY PRN 09/25/16 [History] Dimethicone/Zinc Oxide [Inzo Zinc Oxide Barrier Cream] 1 applic TOPICAL Q12H [History] Docusate [Colace] 100 mg PO BID PRN 09/25/16 [History] Megestrol Acetate [Megace] 400 mg PO DAILY 09/25/16 [History] Memantine [Namenda] 10 mg PO BID 09/25/16 [History] Menthol-Camphor Lotion [Sarna Lotion 0.5%-0.5%] 1 applic TOPICAL BID PRN [History] Tolnaftate [Tinactin Powder] 1 applic TOPICAL Q12H 09/25/16 [History] Triamcinolone 0.1% Cream [Kenalog] 1 applic TOPICAL Q12H 09/25/16 [History] Venelex Ointment 1 applic TOPICAL BID 09/25/16 [History] diphenhydrAMINE HCL [Benadryl] 25 mg PO DAILY PRN 09/25/16 [History] ALPRAZolam [Xanax] 0.25 mg PO HS@2100 #30 09/27/16 [Rx] Pantoprazole Sodium [Protonix] 40 mg PO DAILY #30 tablet. 09/27/16 [Rx] Tamsulosin HCl [Flomax] 0.4 mg PO BID #60 09/27/16 [Rx] Follow up Appointment(s)/Referral(s): [facility], [NON-STAFF] - 1 Week Cldye Doran MD [Primary Care Provider] - 1 Week Patient Instructions/Handouts: Dehydration (DC) Activity/Diet/Wound Care/Special Instructions: Change positions every 2 hours while awake. Regular diet. Patient will be discharged back to [facility]. Dr. Doran to follow at [facility] Discharge Disposition: TRANSFER TO SNF/ECF
[2016-09-27 16:19] VITALS: BP 112/67; PULSE 94; RESP 20
[2016-09-27 17:21] VITALS: TEMP 99.4
== END 2016-09-27 17:52 | DRG 392 ==
LOC: EC 14:20 → 4MS4W 16:41
PROVIDERS: ADMIT Internal Medicine; ATTEND Internal Medicine
PROC: 0DJ08ZZ Inspection of Upper Intestinal Tract, Via Natural or Artificial Opening Endoscopic (ICD-10-PCS; principal; 2016-09-26 07:30)
DX: K29.60 Other gastritis without bleeding (principal); I69.354 Hemiplegia and hemiparesis following cerebral infarction affecting left non-dominant side; N39.0 Urinary tract infection, site not specified; K92.2 Gastrointestinal hemorrhage, unspecified; E86.0 Dehydration; F03.90 Unspecified dementia, unspecified severity, without behavioral disturbance, psychotic disturbance, mood disturbance, and anxiety; R13.10 Dysphagia, unspecified; E78.5 Hyperlipidemia, unspecified; F32.9 Major depressive disorder, single episode, unspecified; F41.9 Anxiety disorder, unspecified; I10 Essential (primary) hypertension; K21.0 Gastro-esophageal reflux disease with esophagitis; K76.9 Liver disease, unspecified; M10.9 Gout, unspecified; N40.0 Benign prostatic hyperplasia without lower urinary tract symptoms; L40.9 Psoriasis, unspecified; M19.90 Unspecified osteoarthritis, unspecified site; R32 Unspecified urinary incontinence; R62.7 Adult failure to thrive; Z79.02 Long term (current) use of antithrombotics/antiplatelets; Z79.899 Other long term (current) drug therapy; Z87.891 Personal history of nicotine dependence
CPT/HCPCS: 36415; 43235; 74022; 76700; 80053; 81001; 82150; 82248; 82272; 82550; 82553; 83690; 83735; 84484; 85025; 85610; 85730; 87077; 87086; 87186; 93005; 96361; 96374; 96375; 99285

== ENCOUNTER 2016-10-07 10:52 | Inpatient (IN) | payer MEDICARE, OTHER ==
[2016-10-07] MEDS ORDERED: ONDANSETRON 4 MG/2 ML VIAL IVP STA (11:02)
[2016-10-07] MEDS ORDERED: SODIUM CHLORIDE 0.9% 2,000 ML IV STA (11:02)
--- NOTE | 2016-10-07 11:08 | ED ---
Nausea/Vomiting/Diarrhea HPI - General Chief complaint: Nausea/Vomiting/Diarrhea Stated complaint: Dehydration Time Seen by Provider: 10/07/16 10:52 Source: patient, EMS, RN notes reviewed, old records reviewed Mode of arrival: EMS - History of Present Illness Initial comments: This is a 81-year-old male with history of multiple medical problems including CVA was brought in by EMS from a local long term. Her also nausea vomiting since yesterday. He was given a liter fluid at home without any improvement. He did refuse to have IVs or medication by EMS. Patient states he has some abdominal pain is ruled out since yesterday he has had decreased oral intake. He does have also cognitive impairment so this history is not totally reliable. MD complaint: nausea, vomiting, other - Related Data Home Medications Medication Instructions Recorded Confirmed Acetaminophen Tab [Tylenol] 650 mg PO Q4H PRN 01/27/14 10/07/16 Cetirizine HCl [Zyrtec] 5 mg PO HS@209901/27/14 10/07/16 Fluticasone Propionate [Flonase] 1 spray EA NOSTRIL BID@899,209901/27/1410/07 Hydrocortisone Cream 1 applic TOPICAL HS@209901/28/14 10/07/16 [Hydrocortisone 2.5% Cream] Clopidogrel [Plavix] 75 mg PO DAILY@89909/25/16 10/07/16 Docusate [Colace] 100 mg PO BID@899,209909/25/16 10/07/16 Megestrol Acetate [Megace] 400 mg PO DAILY@89909/25/16 10/07/16 Memantine [Namenda] 10 mg PO BID@899,209909/25/16 10/07/16 Tolnaftate [Tinactin Powder] 1 applic TOPICAL HS@2099 PRN 09/25/16 10/07/16 Venelex Ointment 1 applic TOPICAL BID@899,209909/25/16 10/07/16 diphenhydrAMINE HCL [Benadryl] 25 mg PO Q12H PRN 09/25/16 10/07/16 ALPRAZolam [Niravam] 0.25 mg PO HS@209910/07/16 10/07/16 Citalopram Hydrobromide [CeleXA] 20 mg PO DAILY@899 10/07/16 10/07/16 Clotrimazole/Betamethasone Dip 1 applic TOPICAL BID@0900,209910/07/16 10/07/16 [Lotrisone Cream] Melatonin 3 mg PO HS PRN 10/07/16 10/07/16 Menthol-Camphor Lotion 16-4% 1 applic TOPICAL Q12H PRN 10/07/16 10/07/16 Mirtazapine [Remeron] 15 mg PO HS@209910/07/16 10/07/16 Sodium Chloride 0.9% Iv Angelica 75 ml IV ONCE 10/07/16 10/07/16 Sucralfate [Carafate] 1 gm PO QID@,,,10/07/16 10/07/16 Tamsulosin HCl [Flomax] 0.4 mg PO BID@0900,2100 10/07/16 10/07/16 Tigan Solution 200 mg IM ONCE PRN 10/07/16 10/07/16 Previous Rx's Medication Instructions Recorded Pantoprazole Sodium [Protonix] 40 mg PO DAILY #30 tablet. 09/27/16 Allergies Allergy/AdvReac Type Severity Reaction Status Date / Time No Known Allergies Allergy Verified 10/07/16 11:32 Review of Systems ROS Statement: Those systems with pertinent positive or pertinent negative responses have been documented in the HPI. ROS Other: All systems not noted in ROS Statement are negative. Past Medical History Past Medical History: CVA/TIA, Hyperlipidemia, Hypertension, Osteoarthritis (OA) Additional Past Medical History / Comment(s): mild congnitive impairment, dysphagia, hemiplegia left, gout, psoriasis. CVA in . right great toe wound. Elevated liver enzymes. Recent C-diff colitis. History of Any Multi-Drug Resistant Organisms: C-DIFF, Other MDRO Date of last positivie culture/infection: 01/21/14 MDRO Source:: stool Additional Past Surgical History / Comment(s): bilateral cataracts removed. Liver biopsy 02/15/14 for elevated liver function. Past Anesthesia/Blood Transfusion Reactions: No Reported Reaction Past Psychological History: Anxiety, Depression Smoking Status: Former smoker - Past Family History Father Family Medical History: COPD Mother Family Medical History: Cancer General Exam - General Exam Comments Initial Comments: This is a well-developed well-nourished alert but somewhat lethargic male General appearance: alert, lethargic Head exam: Present: atraumatic, normocephalic, normal inspection Eye exam: Present: normal appearance, PERRL, EOMI. Absent: scleral icterus, conjunctival injection, periorbital swelling ENT exam: Present: mucous membranes dry Neck exam: Present: normal inspection. Absent: tenderness, meningismus, lymphadenopathy Respiratory exam: Present: normal lung sounds bilaterally. Absent: respiratory distress, wheezes, rales, rhonchi, stridor Cardiovascular Exam: Present: regular rate, normal rhythm, normal heart sounds. Absent: systolic murmur, diastolic murmur, rubs, gallop, clicks GI/Abdominal exam: Present: soft, distended, tenderness (Mild generalized discomfort no focal tenderness), normal bowel sounds, other (Increased tympany) . Absent: guarding, rebound, rigid, mass exam: Present: normal inspection Extremities exam: Present: normal inspection, full ROM, normal capillary refill. Absent: tenderness, pedal edema, joint swelling, calf tenderness Back exam: Present: normal inspection Neurological exam: Present: alert, oriented X3, CN II-XII intact Psychiatric exam: Present: normal affect, normal mood Skin exam: Present: warm, dry, intact, normal color. Absent: rash Course Vital Signs 10/07/16 10/07/16 10/07/16 10:54 11:43 12:57 Temperature 101 F H 99.4 F Pulse Rate 99 93 103 H Respiratory 20 18 16 Rate Blood Pressure 165/75 121/71 138/77 O2 Sat by Pulse 97 98 95 Oximetry - Reevaluation(s) Reevaluation #1: 10/07/16 14:37 Reevaluation patient reveals minimal change. I did discuss findings the patient 's family. Medical Decision Making - Medical Decision Making Patient does have evidence of dehydration urinary tract infection she'll be admitted he was placed on IV antibiotics and fluids his left against was elevated this is partially on the basis of dehydration. - Lab Data Result diagrams: 10/07/16 11:30 10/07/16 11:30 Lab Results 10/07/16 10/07/16 10/07/16 Range/Units 11:30 11:30 11:30 WBC 10.7 H (3.8-10.6) k/uL RBC 4.71 (4.30-5.90) m/uL Hgb 14.8 (13.0-17.5) gm/dL Hct 45.2 (39.0-53.0) % MCV 95.8 (80.0-100.0) fL MCH 31.4 (25.0-35.0) pg MCHC 32.7 (31.0-37.0) g/dL RDW 16.7 H (11.5-15.5) % Plt Count 170 (150-450) k/uL Neutrophils % 89 % Lymphocytes % 6 % Monocytes % 4 % Eosinophils % 0 % Basophils % 0 % Neutrophils # 9.5 H (1.3-7.7) k/uL Lymphocytes # 0.7 L (1.0-4.8) k/uL Monocytes # 0.4 (0-1.0) k/uL Eosinophils # 0.0 (0-0.7) k/uL Basophils # 0.0 (0-0.2) k/uL Anisocytosis Slight Macrocytosis Slight Sodium 143 (137-145) mmol/L Potassium 4.4 (3.5-5.1) mmol/L Chloride 107 (98-107) mmol/L Carbon Dioxide 20 L (22-30) mmol/L Anion Gap 16 mmol/L BUN 8 L (9-20) mg/dL Creatinine 0.66 (0.66-1.25) mg/dL Est GFR (MDRD) Af Amer >60 (>60 ml/min/1.73 sqM) Est GFR (MDRD) Non-Af >60 (>60 ml/min/1.73 sqM) Glucose 94 (74-99) mg/dL Plasma Lactic Acid Zeeshan 3.6 H* (0.7-2.0) mmol/L Calcium 9.0 (8.4-10.2) mg/dL Magnesium 1.8 (1.6-2.3) mg/dL Total Bilirubin 1.1 (0.2-1.3) mg/dL AST 22 (17-59) U/L ALT 15 L (21-72) U/L Alkaline Phosphatase 149 H (38-126) U/L Total Protein 6.7 (6.3-8.2) g/dL Albumin 3.4 L (3.5-5.0) g/dL Amylase <30 L (30-110) U/L Lipase 84 (23-300) U/L Urine Color Urine Appearance (Clear) Urine pH (5.0-8.0) Ur Specific [place] (1.001-1.035) Urine Protein (Negative) Urine Glucose (UA) (Negative) Urine Ketones (Negative) Urine Blood (Negative) Urine Nitrite (Negative) Urine Bilirubin (Negative) Urine Urobilinogen (<2.0) mg/dL Ur Leukocyte Esterase (Negative) Urine RBC (0-5) /hpf Urine WBC (0-5) /hpf Urine WBC Clumps (None) /hpf Urine Bacteria (None) /hpf Urine Mucus (None) /hpf Urine Yeast (Budding) (None) /hpf 10/07/16 Range/Units 13:50 WBC (3.8-10.6) k/uL RBC (4.30-5.90) m/uL Hgb (13.0-17.5) gm/dL Hct (39.0-53.0) % MCV (80.0-100.0) fL MCH (25.0-35.0) pg MCHC (31.0-37.0) g/dL RDW (11.5-15.5) % Plt Count (150-450) k/uL Neutrophils % % Lymphocytes % % Monocytes % % Eosinophils % % Basophils % % Neutrophils # (1.3-7.7) k/uL Lymphocytes # (1.0-4.8) k/uL Monocytes # (0-1.0) k/uL Eosinophils # (0-0.7) k/uL Basophils # (0-0.2) k/uL Anisocytosis Macrocytosis Sodium (137-145) mmol/L Potassium (3.5-5.1) mmol/L Chloride (98-107) mmol/L Carbon Dioxide (22-30) mmol/L Anion Gap mmol/L BUN (9-20) mg/dL Creatinine (0.66-1.25) mg/dL Est GFR (MDRD) Af Amer (>60 ml/min/1.73 sqM) Est GFR (MDRD) Non-Af (>60 ml/min/1.73 sqM) Glucose (74-99) mg/dL Plasma Lactic Acid Zeeshan (0.7-2.0) mmol/L Calcium (8.4-10.2) mg/dL Magnesium (1.6-2.3) mg/dL Total Bilirubin (0.2-1.3) mg/dL AST (17-59) U/L ALT (21-72) U/L Alkaline Phosphatase (38-126) U/L Total Protein (6.3-8.2) g/dL Albumin (3.5-5.0) g/dL Amylase (30-110) U/L Lipase (23-300) U/L Urine Color Yellow Urine Appearance Cloudy (Clear) Urine pH 6.0 (5.0-8.0) Ur Specific [place] 1.013 (1.001-1.035) Urine Protein Trace H (Negative) Urine Glucose (UA) Negative (Negative) Urine Ketones 2+ H (Negative) Urine Blood Moderate H (Negative) Urine Nitrite Negative (Negative) Urine Bilirubin Negative (Negative) Urine Urobilinogen 3.0 (<2.0) mg/dL Ur Leukocyte Esterase Large H (Negative) Urine RBC 11 H (0-5) /hpf Urine WBC >182 H (0-5) /hpf Urine WBC Clumps Moderate H (None) /hpf Urine Bacteria Many H (None) /hpf Urine Mucus Many H (None) /hpf Urine Yeast (Budding) Occasional H (None) /hpf - Radiology Data Radiology results: report reviewed (I did review the imaging and reports no acute findings are seen at this time.), image reviewed Disposition Clinical Impression: Urinary tract infection, Sepsis, Dehydration, Febrile illness, acute, Failure to thrive, Vomiting Disposition: ADMITTED IP TO THIS [facility] Condition: Stable Referrals: Clyde Doran MD [Primary Care Provider] - 1-2 days
[2016-10-07 11:53] LABS: ALT 15 U/L (21-72); AST 22 U/L (17-59); Alkaline Phosphatase 149 U/L (38-126); Amylase <30 U/L (30-110); Anion Gap 16 mmol/L; Blood Urea Nitrogen 8 mg/dL (9-20); Carbon Dioxide 20 mmol/L (22-30); Chloride 107 mmol/L (98-107); Glucose 94 mg/dL (74-99); Magnesium 1.8 mg/dL (1.6-2.3); Non-African American GFR(MDRD) >60 (>60 ml/min/1.73 sqM); Potassium 4.4 mmol/L (3.5-5.1); Sodium 143 mmol/L (137-145); Total Bilirubin 1.1 mg/dL (0.2-1.3); Total Protein 6.7 g/dL (6.3-8.2)
[2016-10-07 11:54] LABS: Anisocytosis Slight; Basophils % (A) 0 %; CHCM 32.6; Eosinophils % (A) 0 %; HCT 45.2 % (39.0-53.0); HDW 2.53; HGB 14.8 gm/dL (13.0-17.5); Luc # (Auto) 0.08; Luc % (Auto) 1; Lymphocytes # (A) 0.7 k/uL (1.0-4.8); Lymphocytes % (A) 6 %; MCH 31.4 pg (25.0-35.0); MCHC 32.7 g/dL (31.0-37.0); MCV 95.8 fL (80.0-100.0); Macrocytosis Slight; Mean Platelet Volume 8.4; Monocytes # (A) 0.4 k/uL (0-1.0); Monocytes % (A) 4 %; Neutrophils # (A) 9.5 k/uL (1.3-7.7); Neutrophils % (A) 89 %; RBC 4.71 m/uL (4.30-5.90); RDW 16.7 % (11.5-15.5); WBC 10.7 k/uL (3.8-10.6); WBC (Perox) 10.42
[2016-10-07] MEDS ORDERED: SODIUM CHLORIDE 0.9% 1,000 ML IV STA (12:26)
--- NOTE | 2016-10-07 12:43 | XR ---
EXAMINATION TYPE: XR chest 2V DATE OF EXAM: 10/07/2016 COMPARISON: 06/01/2013 HISTORY: Abdominal pain TECHNIQUE: Frontal and lateral views of the chest are obtained. FINDINGS: There is a relative poor inspiration. There is mild elevation of the right diaphragm. Ther e is no heart failure. Thoracic aorta is atheromatous. I see no pleural effusion. Bony thorax is inta ct. IMPRESSION: There is mild chronic elevation of right diaphragm. No acute lung disease. No adverse ch annamaria compared to old exam. Normal heart
--- NOTE | 2016-10-07 12:44 | XR ---
EXAMINATION TYPE: XR KUB DATE OF EXAM: 10/07/2016 COMPARISON: 01/27/2014 HISTORY: Abdominal pain TECHNIQUE: 2 views FINDINGS: There is no sign of intestinal obstruction or pneumoperitoneum. There is some retained feca l material in the left colon. There is interposition of the hepatic flexure of the colon which is a n ormal variant. There are no pathologic calcifications over the kidneys. IMPRESSION: Nonacute abdomen. There has been removal of gastrostomy tube compared to old exam. Mild c onstipation.
[2016-10-07 14:14] LABS: Appearance,Urine Cloudy (Clear); Bacteria,Urine Many /hpf; Bilirubin,Urine Negative (Negative); Glucose,Urine (UA) Negative (Negative); Ketones,Urine 2+ (Negative); Leukocyte Esterase,Urine Large (Negative); Mucus,Urine Many /hpf; Nitrite,Urine Negative (Negative); Particle Count 84169; Protein,Urine Trace (Negative); RBC,Urine 11 /hpf (0-5); Specific Gravity,Urine 1.013 (1.001-1.035); UA Billing (MACRO vs. MICRO) MICRO; WBC,Urine >182 /hpf (0-5)
[2016-10-07] MEDS ORDERED: SODIUM CHLORIDE 0.45% 1,000 ML IV SCH (14:45)
[2016-10-07] MEDS ORDERED: MELATONIN 3 MG TABLET PO PRN (14:50)
[2016-10-07] MEDS ORDERED: ACETAMINOPHEN TAB 325 MG TAB PO PRN (14:50)
[2016-10-07] MEDS ORDERED: diphenhydrAMINE 25 MG CAP PO PRN (14:50)
[2016-10-07] MEDS ORDERED: NYSTATIN 100,000 UNIT/GM POWD 15 GM TOPICAL PRN (14:50)
--- NOTE | 2016-10-07 14:54 | ED ---
Medical Decision Making - Lab Data Result diagrams: 10/07/16 11:30 10/07/16 11:30 Lab Results 10/07/16 10/07/16 10/07/16 Range/Units 11:30 11:30 11:30 WBC 10.7 H (3.8-10.6) k/uL RBC 4.71 (4.30-5.90) m/uL Hgb 14.8 (13.0-17.5) gm/dL Hct 45.2 (39.0-53.0) % MCV 95.8 (80.0-100.0) fL MCH 31.4 (25.0-35.0) pg MCHC 32.7 (31.0-37.0) g/dL RDW 16.7 H (11.5-15.5) % Plt Count 170 (150-450) k/uL Neutrophils % 89 % Lymphocytes % 6 % Monocytes % 4 % Eosinophils % 0 % Basophils % 0 % Neutrophils # 9.5 H (1.3-7.7) k/uL Lymphocytes # 0.7 L (1.0-4.8) k/uL Monocytes # 0.4 (0-1.0) k/uL Eosinophils # 0.0 (0-0.7) k/uL Basophils # 0.0 (0-0.2) k/uL Anisocytosis Slight Macrocytosis Slight Sodium 143 (137-145) mmol/L Potassium 4.4 (3.5-5.1) mmol/L Chloride 107 (98-107) mmol/L Carbon Dioxide 20 L (22-30) mmol/L Anion Gap 16 mmol/L BUN 8 L (9-20) mg/dL Creatinine 0.66 (0.66-1.25) mg/dL Est GFR (MDRD) Af Amer >60 (>60 ml/min/1.73 sqM) Est GFR (MDRD) Non-Af >60 (>60 ml/min/1.73 sqM) Glucose 94 (74-99) mg/dL Plasma Lactic Acid Zeeshan 3.6 H* (0.7-2.0) mmol/L Calcium 9.0 (8.4-10.2) mg/dL Magnesium 1.8 (1.6-2.3) mg/dL Total Bilirubin 1.1 (0.2-1.3) mg/dL AST 22 (17-59) U/L ALT 15 L (21-72) U/L Alkaline Phosphatase 149 H (38-126) U/L Total Protein 6.7 (6.3-8.2) g/dL Albumin 3.4 L (3.5-5.0) g/dL Amylase <30 L (30-110) U/L Lipase 84 (23-300) U/L Urine Color Urine Appearance (Clear) Urine pH (5.0-8.0) Ur Specific [place] (1.001-1.035) Urine Protein (Negative) Urine Glucose (UA) (Negative) Urine Ketones (Negative) Urine Blood (Negative) Urine Nitrite (Negative) Urine Bilirubin (Negative) Urine Urobilinogen (<2.0) mg/dL Ur Leukocyte Esterase (Negative) Urine RBC (0-5) /hpf Urine WBC (0-5) /hpf Urine WBC Clumps (None) /hpf Urine Bacteria (None) /hpf Urine Mucus (None) /hpf Urine Yeast (Budding) (None) /hpf 10/07/16 Range/Units 13:50 WBC (3.8-10.6) k/uL RBC (4.30-5.90) m/uL Hgb (13.0-17.5) gm/dL Hct (39.0-53.0) % MCV (80.0-100.0) fL MCH (25.0-35.0) pg MCHC (31.0-37.0) g/dL RDW (11.5-15.5) % Plt Count (150-450) k/uL Neutrophils % % Lymphocytes % % Monocytes % % Eosinophils % % Basophils % % Neutrophils # (1.3-7.7) k/uL Lymphocytes # (1.0-4.8) k/uL Monocytes # (0-1.0) k/uL Eosinophils # (0-0.7) k/uL Basophils # (0-0.2) k/uL Anisocytosis Macrocytosis Sodium (137-145) mmol/L Potassium (3.5-5.1) mmol/L Chloride (98-107) mmol/L Carbon Dioxide (22-30) mmol/L Anion Gap mmol/L BUN (9-20) mg/dL Creatinine (0.66-1.25) mg/dL Est GFR (MDRD) Af Amer (>60 ml/min/1.73 sqM) Est GFR (MDRD) Non-Af (>60 ml/min/1.73 sqM) Glucose (74-99) mg/dL Plasma Lactic Acid Zeeshan (0.7-2.0) mmol/L Calcium (8.4-10.2) mg/dL Magnesium (1.6-2.3) mg/dL Total Bilirubin (0.2-1.3) mg/dL AST (17-59) U/L ALT (21-72) U/L Alkaline Phosphatase (38-126) U/L Total Protein (6.3-8.2) g/dL Albumin (3.5-5.0) g/dL Amylase (30-110) U/L Lipase (23-300) U/L Urine Color Yellow Urine Appearance Cloudy (Clear) Urine pH 6.0 (5.0-8.0) Ur Specific [place] 1.013 (1.001-1.035) Urine Protein Trace H (Negative) Urine Glucose (UA) Negative (Negative) Urine Ketones 2+ H (Negative) Urine Blood Moderate H (Negative) Urine Nitrite Negative (Negative) Urine Bilirubin Negative (Negative) Urine Urobilinogen 3.0 (<2.0) mg/dL Ur Leukocyte Esterase Large H (Negative) Urine RBC 11 H (0-5) /hpf Urine WBC >182 H (0-5) /hpf Urine WBC Clumps Moderate H (None) /hpf Urine Bacteria Many H (None) /hpf Urine Mucus Many H (None) /hpf Urine Yeast (Budding) Occasional H (None) /hpf Critical Care Time Critical Care Time: Yes Critical Care Time: 31 minutes of critical care time which includes initial presentation with 100 EMS and discussed with paramedics. History physical labs x-rays. Old chart review. Discussed with family members. Reevaluation the patient response to therapy. Discussion with the admitting physician. Admission orders and documentation of the above. Disposition Clinical Impression: Urinary tract infection, Sepsis, Dehydration, Febrile illness, acute, Failure to thrive, Vomiting Disposition: ADMITTED IP TO THIS [facility] Condition: Stable Referrals: Clyde Doran MD [Primary Care Provider] - 1-2 days
[2016-10-07] MEDS ORDERED: ACETAMINOPHEN IV (For NPO) 1,000 MG in EMPTY BAG 1 BAG IVPB STA (15:55)
[2016-10-07] MEDS ORDERED: Potassium Replacement Protocol 1 EACH MISC MISCELLANE PRN (17:07)
[2016-10-07] MEDS ORDERED: Magnesium Replacement Protocol 1 EACH MISC MISCELLANE PRN (17:07)
[2016-10-07] MEDS: SUCRALFATE 1 GM TAB PO SCH ×2 (17:28→22:53)
[2016-10-07] MEDS ORDERED: RX INFO: IV CONTRAST WAS GIVEN 1 EACH MISC MISCELLANE PRN (18:04)
--- NOTE | 2016-10-07 18:10 | P.HPIM ---
History of Present Illness H&P Date: 10/07/16 Chief Complaint: Nausea and vomiting This is a 81-year-old gentleman with past medical history noted below who was brought into the emergency room by EMS with concerns about worsening nausea and vomiting. Apparently patient has been vomiting since yesterday and was treated at the [facility] with IV fluid hydration with minimal improvement. Today his mentation was noted to be significantly worse and he was sent to the emergency room where he was found to be septic with significantly elevated fever and a T-max of 102.5. Patient is currently very lethargic and is unable to provide any medical history. Family members at bedside. He is hemodynamically stable. He received IV ceftriaxone in the emergency room but unfortunately his lactate continued to worsen. He remained hemodynamically stable. Review of Systems Review of system: 14 points review of systems were obtained and were negative except to what were mentioned in the HPI. Past Medical History Past Medical History: CVA/TIA, Hyperlipidemia, Hypertension, Osteoarthritis (OA) Additional Past Medical History / Comment(s): mild congnitive impairment, dysphagia, hemiplegia left, gout, psoriasis. CVA in . right great toe wound. Elevated liver enzymes. Recent C-diff colitis. History of Any Multi-Drug Resistant Organisms: C-DIFF, Other MDRO Date of last positivie culture/infection: 01/21/14 MDRO Source:: stool Additional Past Surgical History / Comment(s): bilateral cataracts removed. Liver biopsy 02/15/14 for elevated liver function. Past Anesthesia/Blood Transfusion Reactions: No Reported Reaction Past Psychological History: Anxiety, Depression Smoking Status: Former smoker - Past Family History Father Family Medical History: COPD Mother Family Medical History: Cancer Medications and Allergies Home Medications Medication Instructions Recorded Confirmed Type Acetaminophen Tab [Tylenol] 650 mg PO Q4H PRN 01/27/14 10/07/16 History Cetirizine HCl [Zyrtec] 5 mg PO HS@209901/27/14 10/07/16 History Fluticasone Propionate [Flonase] 1 spray EA NOSTRIL BID@0900,209901/27/1410/07 History Hydrocortisone Cream 1 applic TOPICAL HS@209901/28/14 10/07/16 History [Hydrocortisone 2.5% Cream] Clopidogrel [Plavix] 75 mg PO DAILY@0909/25/16 10/07/16 History Docusate [Colace] 100 mg PO BID@0900,209909/25/16 10/07/16 History Megestrol Acetate [Megace] 400 mg PO DAILY@89909/25/16 10/07/16 History Memantine [Namenda] 10 mg PO BID@0900,209909/25/16 10/07/16 History Tolnaftate [Tinactin Powder] 1 applic TOPICAL HS@2099 PRN 09/25/16 10/07/16 History Venelex Ointment 1 applic TOPICAL BID@00,209909/25/16 10/07/16 History diphenhydrAMINE HCL [Benadryl] 25 mg PO Q12H PRN 09/25/16 10/07/16 History ALPRAZolam [Niravam] 0.25 mg PO HS@209910/07/16 10/07/16 History Citalopram Hydrobromide [CeleXA] 20 mg PO DAILY@89910/07/16 10/07/16 History Clotrimazole/Betamethasone Dip 1 applic TOPICAL BID@00,209910/07/16 10/07/16 History [Lotrisone Cream] Melatonin 3 mg PO HS PRN 10/07/16 10/07/16 History Menthol-Camphor Lotion 16-4% 1 applic TOPICAL Q12H PRN 10/07/16 10/07/16 History Mirtazapine [Remeron] 15 mg PO HS@209910/07/16 10/07/16 History Sodium Chloride 0.9% Iv Angelica 75 ml IV ONCE 10/07/16 10/07/16 History Sucralfate [Carafate] 1 gm PO QID@,,,10/07/16 10/07/16 History Tamsulosin HCl [Flomax] 0.4 mg PO BID@0900,209910/07/16 10/07/16 History Tigan Solution 200 mg IM ONCE PRN 10/07/16 10/07/16 History Allergies Allergy/AdvReac Type Severity Reaction Status Date / Time No Known Allergies Allergy Verified 10/07/16 11:32 Physical Exam Vitals: Vital Signs Temp Pulse Resp BP Pulse Ox 10/07/16 15:00 102.1 F H 100 18 126/73 95 10/07/16 12:57 99.4 F 103 H 16 138/77 95 10/07/16 11:43 93 18 121/71 98 10/07/16 10:54 101 F H 99 20 165/75 97 Intake and Output 10/07/16 10/07/16 10/07/16 06:59 14:59 22:59 Intake Total 3000 Balance 3000 Intake: Amount of Fluid Infused ( 3000 ml) Other: Weight 60.328 kg Patient Weight 10/08/16 06:59 Weight 60.328 kg General: The patient is lethargic but easily arousable. He is not answering questions area Eye: there is normal conjunctiva bilaterally. Neck: The neck is supple, there is no JVD. Cardiovascular: Normal S1-S2, no S3-S4, no murmurs. Respiratory: Lungs clear to auscultation bilaterally Gastrointestinal: Abdomen is soft, there is moderate tenderness to palpation throughout the abdomen. Musculoskeletal: There is no pedal edema. Skin: Skin is warm and dry Results CBC & Chem 7: 10/07/16 11:30 10/07/16 11:30 Labs: Abnormal Lab Results - Last 24 Hours (Table) 10/07/16 10/07/16 10/07/16 Range/Units 11:30 11:30 11:30 WBC 10.7 H (3.8-10.6) k/uL RDW 16.7 H (11.5-15.5) % Neutrophils # 9.5 H (1.3-7.7) k/uL Lymphocytes # 0.7 L (1.0-4.8) k/uL Carbon Dioxide 20 L (22-30) mmol/L BUN 8 L (9-20) mg/dL Plasma Lactic Acid Zeeshan 3.6 H* (0.7-2.0) mmol/L ALT 15 L (21-72) U/L Alkaline Phosphatase 149 H (38-126) U/L Albumin 3.4 L (3.5-5.0) g/dL Amylase <30 L (30-110) U/L Urine Protein (Negative) Urine Ketones (Negative) Urine Blood (Negative) Ur Leukocyte Esterase (Negative) Urine RBC (0-5) /hpf Urine WBC (0-5) /hpf Urine WBC Clumps (None) /hpf Urine Bacteria (None) /hpf Urine Mucus (None) /hpf Urine Yeast (Budding) (None) /hpf 10/07/16 10/07/16 Range/Units 13:50 15:12 WBC (3.8-10.6) k/uL RDW (11.5-15.5) % Neutrophils # (1.3-7.7) k/uL Lymphocytes # (1.0-4.8) k/uL Carbon Dioxide (22-30) mmol/L BUN (9-20) mg/dL Plasma Lactic Acid Zeeshan 4.4 H* (0.7-2.0) mmol/L ALT (21-72) U/L Alkaline Phosphatase (38-126) U/L Albumin (3.5-5.0) g/dL Amylase (30-110) U/L Urine Protein Trace H (Negative) Urine Ketones 2+ H (Negative) Urine Blood Moderate H (Negative) Ur Leukocyte Esterase Large H (Negative) Urine RBC 11 H (0-5) /hpf Urine WBC >182 H (0-5) /hpf Urine WBC Clumps Moderate H (None) /hpf Urine Bacteria Many H (None) /hpf Urine Mucus Many H (None) /hpf Urine Yeast (Budding) Occasional H (None) /hpf Assessment and Plan Plan: 1. Complicated urinary tract infection 2. Severe sepsis without septic shock 3. History of CVA with residual left-sided hemiplegia 4. Essential hypertension: Blood pressure well-controlled 5. Advanced dementia 6. Moderate to severe protein/calorie malnutrition 7. CODE STATUS DNR/DNI Today, I reviewed his medication list and lab work results. Ordered stat lactic acid level. Continue IV fluid hydration with normal saline at 125 MLS per hour. Broaden antibiotic coverage to vancomycin and cefepime as patient continued to spike fever and his lactate getting worse despite receiving ceftriaxone. Awaiting urine and blood culture. I would also obtain a computed tomography scan of the abdomen to rule out bowel ischemia given significant pain and moderate tenderness to palpation on exam with elevated lactate. Family members at bedside updated about his guarded condition. Time with Patient: Greater than 30 (> 50% of the total time spent in counseling and coordination of care.)
[2016-10-07] MEDS: SODIUM CHLORIDE 0.9% 1,000 ML IV SCH (19:12)
--- NOTE | 2016-10-07 19:25 | CT ---
EXAMINATION TYPE: CT abdomen pelvis w con DATE OF EXAM: 10/07/2016 COMPARISON: NONE HISTORY: Nausea, vomiting and sepsis. Rule out bowel ischemia. CT DLP: 807.40 mGycm Automated exposure control for dose reduction was used. TECHNIQUE: Helical acquisition of images was performed from the lung bases through the pelvis. CONTRAST: Performed without Oral Contrast and with IV Contrast, patient injected with 100 mL of Omnipaque 300. FINDINGS: There is patchy consolidation and atelectasis at the posterior lung bases. There is no pericardial ef fusion. There is no definite pleural effusion. Liver shows no focal defect. Gallbladder appears normal. Bile ducts are not dilated. Spleen appears n ormal. There is no evidence of pancreatic mass. Exam is limited by motion. There is no adrenal mass. Kidneys show satisfactory contrast opacification. There is no hydronephrosis. Abdominal aorta is athe romatous. Abdominal aorta measures up to 2.8 cm. There is no ascites. There is retained fecal materia l in the rectum. There is a Garcia catheter in the bladder. Bladder is empty. There is no sign of pneu moperitoneum. I see no intestinal wall thickening. There are no dilated loops. There is osteopenia. I see no focal bone destruction. I see no evidence of intestinal wall edema. IMPRESSION: PNEUMONIA AND ATELECTASIS AT THE POSTERIOR LUNG BASES. ATHEROSCLEROTIC VASCULAR DISEASE. NO EVIDENCE OF INTESTINAL ISCHEMIA. RECTAL FECAL IMPACTION. RECTUM MEASURES 8 CM.
[2016-10-07] MEDS: HEPARIN SODIUM,PORCINE 5,000 UNIT/ML 1 ML VIAL SQ SCH (22:17)
[2016-10-07] MEDS: DOCUSATE 100 MG CAP PO SCH (22:53)
[2016-10-07] MEDS: MIRTAZAPINE 15 MG TAB PO SCH (22:53)
[2016-10-07] MEDS: MEMANTINE 10 MG TAB PO SCH (22:53)
[2016-10-07] MEDS: LORATADINE 10 MG TAB PO SCH (22:53)
[2016-10-07] MEDS: ALPRAZolam 0.25 MG TAB PO SCH (22:53)
[2016-10-07] MEDS: TAMSULOSIN 0.4 MG CAP.ER.24H PO SCH (22:54)
[2016-10-08] MEDS: CEFEPIME 1 GM in SODIUM CHLORIDE 0.9% 50 ML IVPB SCH ×3 (00:15→21:57)
[2016-10-08 07:05] LABS: Anisocytosis Slight; Basophils % (A) 0 %; CH 30.9; CHCM 32.1; Eosinophils % (A) 0 %; HCT 37.2 % (39.0-53.0); HDW 2.66; HGB 12.3 gm/dL (13.0-17.5); Luc # (Auto) 0.08; Luc % (Auto) 1; Lymphocytes # (A) 0.8 k/uL (1.0-4.8); Lymphocytes % (A) 9 %; Macrocytosis Slight; Monocytes # (A) 0.2 k/uL (0-1.0); Monocytes % (A) 3 %; Neutrophils # (A) 7.6 k/uL (1.3-7.7); Neutrophils % (A) 87 %; RBC 3.84 m/uL (4.30-5.90); WBC 8.7 k/uL (3.8-10.6); WBC (Perox) 8.63
[2016-10-08 07:20] LABS: Anion Gap 12 mmol/L; Blood Urea Nitrogen 6 mg/dL (9-20); Calcium 7.3 mg/dL (8.4-10.2); Carbon Dioxide 18 mmol/L (22-30); Chloride 111 mmol/L (98-107); Glucose 70 mg/dL (74-99); Magnesium 1.5 mg/dL (1.6-2.3); Non-African American GFR(MDRD) >60 (>60 ml/min/1.73 sqM); Sodium 141 mmol/L (137-145)
[2016-10-08 07:32] LABS: Potassium 2.9 mmol/L (3.5-5.1)
[2016-10-08] MEDS: MEGESTROL 400 MG/10 ML CUP PO SCH (10:11)
[2016-10-08] MEDS: SUCRALFATE 1 GM TAB PO SCH ×4 (10:11→23:37)
[2016-10-08] MEDS: DOCUSATE 100 MG CAP PO SCH ×2 (10:11→23:36)
[2016-10-08] MEDS: CLOPIDOGREL 75 MG TAB PO SCH (10:11)
[2016-10-08] MEDS: MEMANTINE 10 MG TAB PO SCH ×2 (10:11→23:37)
[2016-10-08] MEDS: TAMSULOSIN 0.4 MG CAP.ER.24H PO SCH ×2 (10:11→23:37)
[2016-10-08] MEDS: SODIUM CHLORIDE 0.9% 1,000 ML IV SCH ×2 (10:12→10:46)
[2016-10-08] MEDS: PANTOPRAZOLE 40 MG/10 ML VIAL IV SCH (10:45)
[2016-10-08] MEDS: HEPARIN SODIUM,PORCINE 5,000 UNIT/ML 1 ML VIAL SQ SCH ×2 (10:45→23:37)
[2016-10-08] MEDS: MAGNESIUM SULFATE-D5W PMX 1 GM in DEXTROSE/WATER 1 100ML.BAG IVPB SCH ×2 (12:43→14:05)
[2016-10-08] MEDS: POTASSIUM CHLORIDE 10 MEQ, LIDOCAINE 2% INJ 10 MG in SODIUM CHLORIDE 0.9% 100 ML IV SCH ×3 (12:43→15:29)
[2016-10-08 14:01] VITALS: BMI 20.7
--- NOTE | 2016-10-08 15:50 | P.PN ---
Subjective Patient's overall condition is not improving today. Even though his lactate has normalized that he still encephalopathic and sleepy. He is easily arousable but is not eating or drinking almost anything. He denies being hungry. He does not have any concerns or complaints. He denies any pain or discomfort. Objective - Vital Signs Vital signs: Vital Signs Temp 96.9 F L 10/08/16 12:05 Pulse 91 10/08/16 12:05 Resp 18 10/08/16 12:05 BP 93/58 10/08/16 12:05 Pulse Ox 97 10/08/16 12:05 Intake & Output 10/07/16 10/08/16 10/08/16 18:59 06:59 18:59 Intake Total 3000 900 1000 Output Total 750 750 Balance 2250 150 1000 Weight 61.5 kg 62 kg 62 kg Intake: Amount of Fluid Infused ( 3000 ml) Intake, IV Titration 900 1000 Amount Cefepime 1 gm In Sodium 100 Chloride 0.9% 50 ml @ 100 mls/hr IVPB Q12HR [facility] Rx #:[id number] Sodium Chloride 0.9% 1, 800 1000 000 ml @ 125 mls/hr IV . Q8H [facility] Rx#:[id number] Output: Urine 750 750 Uretheral (Garcia) 750 Other: Voiding Method Indwelling Catheter Indwelling Catheter Indwelling Catheter - Exam General: The patient is awake and alert, i Eye: there is normal conjunctiva bilaterally. Neck: The neck is supple, there is no JVD. Cardiovascular: Normal S1-S2, no S3-S4, no murmurs. Respiratory: Lungs clear to auscultation bilaterally Gastrointestinal: Abdomen is soft, nontender Musculoskeletal: There is no pedal edema. Neurological:. Speech is normal. Skin: Skin is warm and dry - Labs CBC & Chem 7: 10/08/16 06:36 10/08/16 06:36 Labs: Abnormal Lab Results - Last 24 Hours (Table) 10/07/16 10/07/16 10/08/16 Range/Units 15:12 17:55 06:36 RBC 3.84 L (4.30-5.90) m/uL Hgb 12.3 L (13.0-17.5) gm/dL Hct 37.2 L (39.0-53.0) % RDW 17.0 H (11.5-15.5) % Plt Count 123 L (150-450) k/uL Lymphocytes # 0.8 L (1.0-4.8) k/uL Potassium (3.5-5.1) mmol/L Chloride (98-107) mmol/L Carbon Dioxide (22-30) mmol/L BUN (9-20) mg/dL Creatinine (0.66-1.25) mg/dL Glucose (74-99) mg/dL Plasma Lactic Acid Zeeshan 4.4 H* 2.9 H* (0.7-2.0) mmol/L Calcium (8.4-10.2) mg/dL Magnesium (1.6-2.3) mg/dL 10/08/16 Range/Units 06:36 RBC (4.30-5.90) m/uL Hgb (13.0-17.5) gm/dL Hct (39.0-53.0) % RDW (11.5-15.5) % Plt Count (150-450) k/uL Lymphocytes # (1.0-4.8) k/uL Potassium 2.9 L* (3.5-5.1) mmol/L Chloride 111 H (98-107) mmol/L Carbon Dioxide 18 L (22-30) mmol/L BUN 6 L (9-20) mg/dL Creatinine 0.51 L (0.66-1.25) mg/dL Glucose 70 L (74-99) mg/dL Plasma Lactic Acid Zeeshan (0.7-2.0) mmol/L Calcium 7.3 L (8.4-10.2) mg/dL Magnesium 1.5 L (1.6-2.3) mg/dL Microbiology - Last 24 Hours (Table) 10/07/16 13:50 Urine Culture - Preliminary Urine,Catheterized Assessment and Plan Plan: 1. Complicated urinary tract infection 2. Severe sepsis without septic shock 3. History of CVA with residual left-sided hemiplegia 4. Essential hypertension: Blood pressure well-controlled 5. Advanced dementia 6. Moderate to severe protein/calorie malnutrition 7. CODE STATUS DNR/DNI 8. Fecal impaction Today, I discussed goals of care with his daughter Elisabeth over the phone. She was there with her mother. We discussed his ongoing medical problems and his guarded prognosis. We also discussed goals of care. They elected to pursue comfort measures/hospice care. Consultation will be requested to hospice. Orders for enema and possible disimpaction for comfort relief.
[2016-10-08 17:34] VITALS: RESP 16
[2016-10-08 23:23] VITALS: BP 125/70; PULSE 78; TEMP 97.1
[2016-10-08] MEDS: ALPRAZolam 0.25 MG TAB PO SCH (23:36)
[2016-10-08] MEDS: MIRTAZAPINE 15 MG TAB PO SCH (23:37)
[2016-10-08] MEDS: LORATADINE 10 MG TAB PO SCH (23:37)
[2016-10-09] MEDS: SODIUM CHLORIDE 0.9% 1,000 ML IV SCH ×3 (03:51→09:44)
[2016-10-09 08:21] LABS: Anisocytosis Slight; Basophils % (A) 0 %; CH 30.3; CHCM 31.8; Eosinophils % (A) 0 %; HCT 38.5 % (39.0-53.0); HDW 2.82; HGB 12.6 gm/dL (13.0-17.5); Luc # (Auto) 0.07; Luc % (Auto) 1; Lymphocytes # (A) 0.7 k/uL (1.0-4.8); Lymphocytes % (A) 12 %; MCH 31.4 pg (25.0-35.0); MCHC 32.7 g/dL (31.0-37.0); MCV 96.1 fL (80.0-100.0); Macrocytosis Slight; Mean Platelet Volume 8.3; Monocytes # (A) 0.2 k/uL (0-1.0); Monocytes % (A) 4 %; Neutrophils % (A) 83 %; RBC 4.01 m/uL (4.30-5.90); RDW 17.1 % (11.5-15.5)
[2016-10-09 08:40] LABS: Anion Gap 11 mmol/L; Blood Urea Nitrogen 4 mg/dL (9-20); Carbon Dioxide 17 mmol/L (22-30); Chloride 110 mmol/L (98-107); Glucose 72 mg/dL (74-99); Magnesium 1.9 mg/dL (1.6-2.3); Non-African American GFR(MDRD) >60 (>60 ml/min/1.73 sqM); Potassium 3.2 mmol/L (3.5-5.1); Sodium 138 mmol/L (137-145)
[2016-10-09] MEDS: CLOPIDOGREL 75 MG TAB PO SCH (09:35)
[2016-10-09] MEDS: DOCUSATE 100 MG CAP PO SCH (09:35)
[2016-10-09] MEDS: HEPARIN SODIUM,PORCINE 5,000 UNIT/ML 1 ML VIAL SQ SCH (09:35)
[2016-10-09] MEDS: MEGESTROL 400 MG/10 ML CUP PO SCH (09:36)
[2016-10-09] MEDS: MEMANTINE 10 MG TAB PO SCH (09:36)
[2016-10-09] MEDS: TAMSULOSIN 0.4 MG CAP.ER.24H PO SCH (09:37)
[2016-10-09] MEDS: SUCRALFATE 1 GM TAB PO SCH ×2 (09:37→14:21)
[2016-10-09] MEDS: PANTOPRAZOLE 40 MG/10 ML VIAL IV SCH (09:42)
[2016-10-09] MEDS: CEFEPIME 1 GM in SODIUM CHLORIDE 0.9% 50 ML IVPB SCH (09:45)
--- NOTE | 2016-10-09 12:35 | P.DS ---
Providers Date of admission: 10/07/16 14:53 Expected date of discharge: 10/09/16 Attending physician: Clyde Doran Primary care physician: Clyde Doran [facility] Course: This is a 81-year-old gentleman with past medical history noted below who presented to the hospital with lethargy and acute mental status change. Patient found to have significant UTI with gram-negative bacteremia. Repeat blood culture were negative. Patient was treated aggressively with IV fluid hydration and IV antibiotic. His overall condition did not improve significantly. Patient remained lethargic and was having problems with failure to thrive. I met with his family including his and daughter at bedside. We discussed goals of care. Patient is DO NOT RESUSCITATE/DO NOT INTUBATE. We discussed hospice philosophy and family agreed to make the patient comfortable and have him return to [facility] hospice care. Below is a list of his problems treated during this hospitalization. 1. Complicated urinary tract infection 2. Severe sepsis without septic shock 3. History of CVA with residual left-sided hemiplegia 4. Essential hypertension: Blood pressure well-controlled 5. Advanced dementia 6. Moderate to severe protein/calorie malnutrition 7. CODE STATUS DNR/DNI 8. Fecal impaction Patient Condition at Discharge: Stable Plan - Discharge Summary New Discharge Prescriptions: New LORazepam [Ativan] 1 mg PO TID PRN #30 tab PRN Reason: Agitation MORPHINE ORAL SOLN 20mg/mL [Roxanol Oral Soln Conc 20MG/ML] 5 mg PO Q4H PRN # 1 bottle PRN Reason: Pain Cephalexin [Keflex] 250 mg PO Q8HR #30 capsule Continue Hydrocortisone Cream [Hydrocortisone 2.5% Cream] 1 applic TOPICAL HS@2100 diphenhydrAMINE HCL [Benadryl] 25 mg PO Q12H PRN PRN Reason: Itching Docusate [Colace] 100 mg PO BID@0900,2100 Memantine [Namenda] 10 mg PO BID@0900,2100 Clopidogrel [Plavix] 75 mg PO DAILY@0900 Pantoprazole Sodium [Protonix] 40 mg PO DAILY #30 tablet.dr Melatonin 3 mg PO HS PRN PRN Reason: Insomnia Tamsulosin HCl [Flomax] 0.4 mg PO BID@0900,2100 Mirtazapine [Remeron] 15 mg PO HS@2100 Changed Acetaminophen Tab [Tylenol] 650 mg PO Q6HR PRN #0 PRN Reason: Pain Or Fever > 100.5 Discontinued Fluticasone Propionate [Flonase] 1 spray EA NOSTRIL BID@899,2099 Cetirizine HCl [Zyrtec] 5 mg PO HS@2099 Tolnaftate [Tinactin Powder] 1 applic TOPICAL HS@2100 PRN PRN Reason: athletes foot Megestrol Acetate [Megace] 400 mg PO DAILY@09 Venelex Ointment 1 applic TOPICAL BID@899,2099 Sucralfate [Carafate] 1 gm PO QID@,,, Menthol-Camphor Lotion 16-4% 1 applic TOPICAL Q12H PRN PRN Reason: Itching Clotrimazole/Betamethasone Dip [Lotrisone Cream] 1 applic TOPICAL BID@899, 2099 Tigan Solution 200 mg IM ONCE PRN PRN Reason: Vomiting Sodium Chloride 0.9% Iv Angelica 75 ml IV ONCE Citalopram Hydrobromide [CeleXA] 20 mg PO DAILY@0900 ALPRAZolam [Niravam] 0.25 mg PO HS@2099 Discharge Medication List Hydrocortisone Cream [Hydrocortisone 2.5% Cream] 1 applic TOPICAL HS@2099 [History] Clopidogrel [Plavix] 75 mg PO DAILY@0900 09/25/16 [History] Docusate [Colace] 100 mg PO BID@0900,209909/25/16 [History] Memantine [Namenda] 10 mg PO BID@0900,209909/25/16 [History] diphenhydrAMINE HCL [Benadryl] 25 mg PO Q12H PRN 09/25/16 [History] Pantoprazole Sodium [Protonix] 40 mg PO DAILY #30 tablet. 09/27/16 [Rx] Melatonin 3 mg PO HS PRN 10/07/16 [History] Mirtazapine [Remeron] 15 mg PO HS@209910/07/16 [History] Tamsulosin HCl [Flomax] 0.4 mg PO BID@0900,209910/07/16 [History] Acetaminophen Tab [Tylenol] 650 mg PO Q6HR PRN #0 10/09/16 [Rx] Cephalexin [Keflex] 250 mg PO Q8HR #30 capsule 10/09/16 [Rx] LORazepam [Ativan] 1 mg PO TID PRN #30 tab 10/09/16 [Rx] MORPHINE ORAL SOLN 20mg/mL [Roxanol Oral Soln Conc 20MG/ML] 5 mg PO Q4H PRN #1 bottle 10/09/16 [Rx] Follow up Appointment(s)/Referral(s): Clyde Doran MD [Primary Care Provider] - 1-2 days Discharge Disposition: TRANSFER TO SNF/ECF
== END 2016-10-09 16:00 | DRG 871 ==
LOC: EC 10:52 → 6SEL 14:53 → 5ONC 10-08 20:55
PROVIDERS: ADMIT Internal Medicine; ATTEND Internal Medicine
DX: A41.9 Sepsis, unspecified organism (principal); E43 Unspecified severe protein-calorie malnutrition; N39.0 Urinary tract infection, site not specified; I69.354 Hemiplegia and hemiparesis following cerebral infarction affecting left non-dominant side; E86.0 Dehydration; F03.90 Unspecified dementia, unspecified severity, without behavioral disturbance, psychotic disturbance, mood disturbance, and anxiety; B96.89 Other specified bacterial agents as the cause of diseases classified elsewhere; E78.5 Hyperlipidemia, unspecified; F32.9 Major depressive disorder, single episode, unspecified; F41.9 Anxiety disorder, unspecified; I10 Essential (primary) hypertension; K56.41 Fecal impaction; M10.9 Gout, unspecified; R62.7 Adult failure to thrive; R65.20 Severe sepsis without septic shock; L40.9 Psoriasis, unspecified; M19.90 Unspecified osteoarthritis, unspecified site; R13.10 Dysphagia, unspecified; Z66 Do not resuscitate; Z79.02 Long term (current) use of antithrombotics/antiplatelets; Z79.899 Other long term (current) drug therapy; Z87.891 Personal history of nicotine dependence
CPT/HCPCS: 36415; 51702; 71020; 74000; 74177; 80048; 80053; 81001; 82150; 83605; 83690; 83735; 85025; 87040; 87077; 87086; 87186; 93005; 96361; 96365; 96375; 99285